=== PATIENT | female | born 1945 | race Two or more races ===

== ENCOUNTER 2018-10-06 20:20 | Inpatient (IN) | payer MEDICARE, MEDICAID ==
[~2018-10-06] VITALS: Ht 160 cm; Wt 59.0 kg
[2018-10-06 20:45] LABS: BASOPHILS # (AUTO) 0.1 /CMM (0.0-0.2); EOSINOPHILS % (AUTO) 1.8 % (0.0-6.0); HEMATOCRIT 38 % (33-45); HEMOGLOBIN 12.7 g/dL (11.5-14.8); LYMPHOCYTES # (AUTO) 0.6 /CMM (0.8-4.8); LYMPHOCYTES % (AUTO) 9.6 % (20.0-44.0); MEAN CORPUSCULAR HGB CONC 34 g/dl (31.0-36.0); MEAN CORPUSCULAR VOLUME 95 fL (82-100); MONOCYTES # (AUTO) 0.6 /CMM (0.1-1.30); MONOCYTES % (AUTO) 9.7 % (2.0-12.0); NEUTROPHILS # (AUTO) 5.1 /CMM (1.8-8.9); NEUTROPHILS % (AUTO) 77.9 % (43.0-81.0); PLATELET COUNT (AUTO) 267 /CMM (150-450); RED BLOOD CELL COUNT(AUTO) 3.96 MIL/uL (4.0-5.2); WHITE BLOOD COUNT (AUTO) 6.6 K/uL (4.3-11.0)
[2018-10-06 20:54] LABS: CALCIUM, SERUM 9.1 mg/dL (8.5-10.1); CARBON DIOXIDE 28 mmol/L (21-32); CHLORIDE 97 mmol/L (98-107); CREATININE 5.2 mg/dL (0.6-1.3); GLUCOSE 106 mg/dL (74-106); POTASSIUM 3.9 mmol/L (3.5-5.1); SODIUM SERUM 136 mmol/L (136-145); UREA NITROGEN, BLOOD 46 mg/dL (7-18)
[2018-10-06 20:59] LABS: ALANINE AMINOTRANSFERASE 11 U/L (12-78); ALBUMIN 3.6 g/dL (3.4-5.0); ALKALINE PHOSPHATASE 107 U/L (46-116); ASPARTATE AMINOTRANSFERASE 16 U/L (15-37); BILIRUBIN,DIRECT 0.1 mg/dL (0.0-0.2); BILIRUBIN,TOTAL 0.5 mg/dL (0.2-1.0)
[2018-10-06] MEDS ORDERED: IV NS 0.9% 500 ML BAG IV ONE (21:00)
[2018-10-06 21:27] LABS: APPEARANCE,URINE Clear (CLEAR); BILIRUBIN,URINE Negative (NEGATIVE); BLOOD, URINE Small Ery/uL (NEGATIVE); COLOR,URINE Yellow (YELLOW); KETONES,URINE Negative (NEGATIVE); LEUKOCYTE ESTERASE ,URINE Negative (NEGATIVE); NITRITE, URINE Negative (NEGATIVE); PROTEIN,URINE >=300 mg/dl (NEGATIVE); UGLUCOSE 100 MG/DL mg/dL (NEGATIVE); UROBILINOGEN,URINE 0.2 EU/dL (0.2)
[2018-10-06 21:37] LABS: BACTERIA,URINE Moderate /HPF (None Seen); SQUAMOUS EPITHELIAL CELL,UR Few /HPF (None Seen); WBC,URINE 0-2 /HPF (0-3)
[2018-10-06] MEDS ORDERED: PIPERACILLIN /TAZOBACTAM 3.375 G VIAL IV ONE (21:46)
[2018-10-06] MEDS ORDERED: VANCOMYCIN 1 GM VIAL ONE (21:46)
[2018-10-06] MEDS ORDERED: VANCOMYCIN 1 GM in IV D5W 250 ML IV ONE (22:00)
[2018-10-06] MEDS ORDERED: CEFTRIAXONE 1GM BAG (ER ONLY) 50 ML IV ONE (22:00)
[2018-10-06] MEDS ORDERED: PIPERACILLIN /TAZOBACTAM 3.375 G in IV D5W 50 ML IV ONE (22:00)
[2018-10-06] MEDS ORDERED: IV NS 0.9% 1,000 ML BAG IV ONE ×2 (22:00)
[2018-10-06] MEDS ORDERED: ONDANSETRON HCL/PF 4 MG/2 ML VIAL ONE (22:16)
[2018-10-06] MEDS ORDERED: ONDANSETRON HCL/PF 4 MG/2 ML VIAL IV ONE (22:30)
[2018-10-07] MEDS ORDERED: MAGNESIUM HYDROXIDE 30 ML UDC PO PRN
[2018-10-07] MEDS ORDERED: ACETAMINOPHEN 325 MG TABLET PO PRN
[2018-10-07] MEDS ORDERED: MAG HYDROX/AL HYDROX/SIMETH 30 ML UDC PO PRN
[2018-10-07] MEDS ORDERED: Z GUARD REMEDY 2 OZ OINT TP PRN
[2018-10-07 00:50] VITALS: BP 168/69
[2018-10-07 04:00] VITALS: BP 150/78
[2018-10-07 06:36] LABS: BASOPHILS % (AUTO) 0.9 % (0.0-2.0); HEMATOCRIT 35 % (33-45); HEMOGLOBIN 11.7 g/dL (11.5-14.8); LYMPHOCYTES # (AUTO) 0.8 /CMM (0.8-4.8); MEAN CORPUSCULAR HGB CONC 34 g/dl (31.0-36.0); MEAN CORPUSCULAR VOLUME 95 fL (82-100); MONOCYTES # (AUTO) 0.6 /CMM (0.1-1.30); MONOCYTES % (AUTO) 12.5 % (2.0-12.0); NEUTROPHILS # (AUTO) 3.5 /CMM (1.8-8.9); NEUTROPHILS % (AUTO) 68.6 % (43.0-81.0); PLATELET COUNT (AUTO) 236 /CMM (150-450); RED BLOOD CELL COUNT(AUTO) 3.71 MIL/uL (4.0-5.2); WHITE BLOOD COUNT (AUTO) 5.1 K/uL (4.3-11.0)
[2018-10-07 06:53] LABS: CALCIUM, SERUM 8.4 mg/dL (8.5-10.1); CARBON DIOXIDE 25 mmol/L (21-32); CHLORIDE 102 mmol/L (98-107); CREATININE 5.9 mg/dL (0.6-1.3); GLUCOSE 73 mg/dL (74-106); MAGNESIUM 2.5 mg/dL (1.8-2.4); PHOSPHORUS 7.2 mg/dL (2.5-4.9); POTASSIUM 4.5 mmol/L (3.5-5.1); SODIUM SERUM 141 mmol/L (136-145); UREA NITROGEN, BLOOD 52 mg/dL (7-18)
[2018-10-07 07:02] LABS: CHOLESTEROL 157 mg/dL (<200); HDL CHOLESTEROL 51 mg/dL (40-60); LDL 90 mg/dL (0-99); THYROID STIMULATING HORMONE 1.142 uIU/mL (0.358-3.74); TRIGLYCERIDES 114 mg/dL (30-150)
[2018-10-07 08:00] VITALS: BP 151/88
[2018-10-07] MEDS: NICOTINE PATCH (14MG) 14 MG PATCH.TD24 TD SCH (08:47)
[2018-10-07] MEDS ORDERED: PANTOPRAZOLE 40 MG VIAL IV SCH (09:00)
[2018-10-07] MEDS ORDERED: CILO50TA PO (09:07)
[2018-10-07] MEDS ORDERED: CLON0.5T12 PO (09:07)
[2018-10-07] MEDS ORDERED: CARV6.252 PO (09:07)
[2018-10-07] MEDS ORDERED: ASPI81TA44 PO (09:07)
[2018-10-07] MEDS ORDERED: LISI10TA5 PO (09:07)
[2018-10-07] MEDS ORDERED: PRAM0.129 PO (09:07)
[2018-10-07] MEDS ORDERED: FOLI0.8T23 PO (09:07)
[2018-10-07] MEDS: PANTOPRAZOLE 40 MG TABLET.DR PO SCH (10:49)
[2018-10-07 16:00] VITALS: BP_SYST 188; BP_DIAS 102; BP_DIAS 104
[2018-10-07] MEDS: HYDROCODONE/APAP 5/325MG 1 EACH TABLET PO PRN (16:19)
[2018-10-07 20:00] VITALS: BP 181/99
[2018-10-07 20:01] VITALS: BP 181/99
[2018-10-07] MEDS: CARVEDILOL 6.25 MG TABLET PO SCH (20:27)
[2018-10-07] MEDS: LISINOPRIL (10MG) 10 MG TABLET PO SCH (20:28)
[2018-10-07] MEDS ORDERED: clonazePAM 0.5 MG TABLET PO PRN (20:30)
[2018-10-08 04:00] VITALS: BP 159/88
[2018-10-08 08:00] VITALS: BP 166/91
[2018-10-08] MEDS: PANTOPRAZOLE 40 MG TABLET.DR PO SCH (08:56)
[2018-10-08] MEDS: CARVEDILOL 6.25 MG TABLET PO SCH ×2 (08:57→16:41)
[2018-10-08] MEDS: PRAMIPEXOLE DI-HCL 0.25 MG TABLET PO SCH (08:58)
[2018-10-08] MEDS: VITAMIN B COMP W-C 1 TAB TABLET PO SCH (08:58)
[2018-10-08] MEDS: ASPIRIN EC 81 MG TABLET.DR PO SCH (08:58)
[2018-10-08] MEDS: CILOSTAZOL 100 MG TABLET PO SCH ×2 (08:58→16:41)
[2018-10-08] MEDS: LISINOPRIL (10MG) 10 MG TABLET PO SCH (08:59)
[2018-10-08] MEDS: NICOTINE PATCH (14MG) 14 MG PATCH.TD24 TD SCH (08:59)
[2018-10-08] MEDS: HYDROCODONE/APAP 5/325MG 1 EACH TABLET PO PRN (09:14)
[2018-10-08] MEDS: ONDANSETRON HCL/PF 4 MG/2 ML VIAL IVP PRN (11:15)
[2018-10-08] MEDS ORDERED: LISINOPRIL (10MG) 10 MG TABLET PO ONE (13:00)
[2018-10-08 16:00] VITALS: BP 168/87
[2018-10-08 17:00] VITALS: BP 157/85
[2018-10-08 20:00] VITALS: BP 160/80
[2018-10-09 04:00] VITALS: BP_SYST 150; BP_SYST 167; BP_DIAS 87; BP_DIAS 95
[2018-10-09 08:00] VITALS: BP 165/81
[2018-10-09] MEDS ORDERED: LISINOPRIL (10MG) 10 MG TABLET PO SCH (09:00)
[2018-10-09] MEDS: hydrALAZINE HCL 25 MG TABLET PO PRN ×2 (09:03→16:42)
[2018-10-09] MEDS: ASPIRIN EC 81 MG TABLET.DR PO SCH (09:04)
[2018-10-09] MEDS: CARVEDILOL 6.25 MG TABLET PO SCH ×2 (09:04→16:41)
[2018-10-09] MEDS: NICOTINE PATCH (14MG) 14 MG PATCH.TD24 TD SCH (09:04)
[2018-10-09] MEDS: VITAMIN B COMP W-C 1 TAB TABLET PO SCH (09:05)
[2018-10-09] MEDS: PANTOPRAZOLE 40 MG TABLET.DR PO SCH (09:05)
[2018-10-09] MEDS: PRAMIPEXOLE DI-HCL 0.25 MG TABLET PO SCH (09:05)
[2018-10-09] MEDS: CILOSTAZOL 100 MG TABLET PO SCH ×2 (09:53→16:42)
[2018-10-09] MEDS ORDERED: LISINOPRIL (20MG) 20 MG TABLET PO ONE (12:30)
[2018-10-09 16:00] VITALS: BP_SYST 172; BP_SYST 192; BP_DIAS 84; BP_DIAS 95
[2018-10-09 20:00] VITALS: BP 151/78
[2018-10-10 04:00] VITALS: BP 167/95
[2018-10-10 06:26] LABS: EOSINOPHILS % (AUTO) 3.1 % (0.0-6.0); HEMATOCRIT 33 % (33-45); HEMOGLOBIN 11.1 g/dL (11.5-14.8); LYMPHOCYTES % (AUTO) 20.1 % (20.0-44.0); MEAN CORPUSCULAR HGB CONC 34 g/dl (31.0-36.0); MEAN CORPUSCULAR VOLUME 95 fL (82-100); MONOCYTES # (AUTO) 0.7 /CMM (0.1-1.30); MONOCYTES % (AUTO) 14.4 % (2.0-12.0); NEUTROPHILS % (AUTO) 61.4 % (43.0-81.0); PLATELET COUNT (AUTO) 210 /CMM (150-450); RED BLOOD CELL COUNT(AUTO) 3.47 MIL/uL (4.0-5.2); WHITE BLOOD COUNT (AUTO) 4.9 K/uL (4.3-11.0)
[2018-10-10 06:43] LABS: CALCIUM, SERUM 8.2 mg/dL (8.5-10.1); CARBON DIOXIDE 26 mmol/L (21-32); CHLORIDE 100 mmol/L (98-107); CREATININE 6.3 mg/dL (0.6-1.3); GLUCOSE 78 mg/dL (74-106); MAGNESIUM 2.2 mg/dL (1.8-2.4); PHOSPHORUS 6.6 mg/dL (2.5-4.9); POTASSIUM 4.4 mmol/L (3.5-5.1); SODIUM SERUM 137 mmol/L (136-145); UREA NITROGEN, BLOOD 30 mg/dL (7-18)
[2018-10-10 08:00] VITALS: BP 182/88
[2018-10-10] MEDS: NICOTINE PATCH (14MG) 14 MG PATCH.TD24 TD SCH (09:38)
[2018-10-10] MEDS: PANTOPRAZOLE 40 MG TABLET.DR PO SCH (09:39)
[2018-10-10] MEDS: CILOSTAZOL 100 MG TABLET PO SCH ×2 (09:39→16:32)
[2018-10-10] MEDS: ASPIRIN EC 81 MG TABLET.DR PO SCH (09:39)
[2018-10-10] MEDS: PRAMIPEXOLE DI-HCL 0.25 MG TABLET PO SCH (09:39)
[2018-10-10] MEDS: VITAMIN B COMP W-C 1 TAB TABLET PO SCH (09:40)
[2018-10-10] MEDS: CARVEDILOL 6.25 MG TABLET PO SCH ×2 (09:41→16:45)
[2018-10-10] MEDS: LISINOPRIL (10MG) 10 MG TABLET PO SCH (09:43)
[2018-10-10] MEDS ORDERED: AMLODIPINE BESYLATE 5 MG TABLET PO SCH (10:00)
[2018-10-10 12:00] VITALS: BP 175/96
[2018-10-10] MEDS: NIFEdipine XL (30MG) 30 MG TAB PO SCH (16:33)
[2018-10-10] MEDS: ONDANSETRON HCL/PF 4 MG/2 ML VIAL IVP PRN (17:49)
[2018-10-10 20:00] VITALS: BP_SYST 111; BP_SYST 137; BP_DIAS 72; BP_DIAS 82
[2018-10-11 04:00] VITALS: BP 141/78
[2018-10-11 07:47] LABS: ALANINE AMINOTRANSFERASE 11 U/L (12-78); ALBUMIN 2.8 g/dL (3.4-5.0); ALKALINE PHOSPHATASE 86 U/L (46-116); ASPARTATE AMINOTRANSFERASE 16 U/L (15-37); BILIRUBIN,TOTAL 0.6 mg/dL (0.2-1.0); CALCIUM, SERUM 8.3 mg/dL (8.5-10.1); CARBON DIOXIDE 27 mmol/L (21-32); CHLORIDE 99 mmol/L (98-107); CREATININE 5.7 mg/dL (0.6-1.3); GLUCOSE 91 mg/dL (74-106); MAGNESIUM 2.1 mg/dL (1.8-2.4); PHOSPHORUS 5.2 mg/dL (2.5-4.9); POTASSIUM 4.9 mmol/L (3.5-5.1); SODIUM SERUM 134 mmol/L (136-145); TOTAL PROTEIN, SERUM 7.4 g/dL (6.4-8.2); UREA NITROGEN, BLOOD 26 mg/dL (7-18)
[2018-10-11 08:00] VITALS: BP 123/78
[2018-10-11 08:17] LABS: BASOPHILS % (AUTO) 0.5 % (0.0-2.0); EOSINOPHILS % (AUTO) 0.6 % (0.0-6.0); HEMATOCRIT 34 % (33-45); HEMOGLOBIN 11.2 g/dL (11.5-14.8); LYMPHOCYTES # (AUTO) 0.6 /CMM (0.8-4.8); LYMPHOCYTES % (AUTO) 9.7 % (20.0-44.0); MEAN CORPUSCULAR HGB CONC 33 g/dl (31.0-36.0); MEAN CORPUSCULAR VOLUME 95 fL (82-100); MONOCYTES # (AUTO) 0.4 /CMM (0.1-1.30); MONOCYTES % (AUTO) 6.3 % (2.0-12.0); NEUTROPHILS # (AUTO) 4.8 /CMM (1.8-8.9); NEUTROPHILS % (AUTO) 82.9 % (43.0-81.0); PLATELET COUNT (AUTO) 229 /CMM (150-450); RED BLOOD CELL COUNT(AUTO) 3.53 MIL/uL (4.0-5.2); WHITE BLOOD COUNT (AUTO) 5.8 K/uL (4.3-11.0)
[2018-10-11] MEDS: VITAMIN B COMP W-C 1 TAB TABLET PO SCH (08:34)
[2018-10-11] MEDS: LISINOPRIL (10MG) 10 MG TABLET PO SCH (08:34)
[2018-10-11] MEDS: PANTOPRAZOLE 40 MG TABLET.DR PO SCH (08:34)
[2018-10-11] MEDS: NICOTINE PATCH (14MG) 14 MG PATCH.TD24 TD SCH (08:35)
[2018-10-11] MEDS: PRAMIPEXOLE DI-HCL 0.25 MG TABLET PO SCH (08:35)
[2018-10-11] MEDS: CARVEDILOL 6.25 MG TABLET PO SCH ×2 (09:55→16:59)
[2018-10-11] MEDS: NIFEdipine XL (30MG) 30 MG TAB PO SCH (09:55)
[2018-10-11] MEDS: ASPIRIN EC 81 MG TABLET.DR PO SCH (09:56)
[2018-10-11] MEDS: CILOSTAZOL 100 MG TABLET PO SCH ×2 (09:56→16:59)
[2018-10-11] MEDS ORDERED: CLON0.1T14 PO (12:11)
[2018-10-11] MEDS ORDERED: NIFE30TA89 PO (12:11)
[2018-10-11 16:00] VITALS: BP 125/71
[2018-10-11 16:59] VITALS: BP 125/71
== END 2018-10-11 18:11 | disposition home or self-care (01) | DRG 391 ==
LOC: ER 20:26 → TELE1 10-07 00:06 → MEDSG1 10-07 09:00
PROVIDERS: ADMIT Registered Nurse; ATTEND Registered Nurse
PROC: 5A1D70Z Performance of Urinary Filtration, Intermittent, Less than 6 Hours Per Day (ICD-10-PCS; principal; 2018-10-07)
PROC: 5A1D70Z Performance of Urinary Filtration, Intermittent, Less than 6 Hours Per Day (ICD-10-PCS; 2018-10-08)
PROC: 5A1D70Z Performance of Urinary Filtration, Intermittent, Less than 6 Hours Per Day (ICD-10-PCS; 2018-10-10)
DX: A08.4 Viral intestinal infection, unspecified (principal); N18.6 End stage renal disease; I13.2 Hypertensive heart and chronic kidney disease with heart failure and with stage 5 chronic kidney disease, or end stage renal disease; E21.3 Hyperparathyroidism, unspecified; E87.8 Other disorders of electrolyte and fluid balance, not elsewhere classified; G89.29 Other chronic pain; I27.20 Pulmonary hypertension, unspecified; J44.9 Chronic obstructive pulmonary disease, unspecified; F17.200 Nicotine dependence, unspecified, uncomplicated; E66.9 Obesity, unspecified; D64.9 Anemia, unspecified; Z91.19 Patient's noncompliance with other medical treatment and regimen; Z99.2 Dependence on renal dialysis; I50.9 Heart failure, unspecified
CPT/HCPCS: 36415; 71045-TC; 80048-TC; 80053-TC; 80061-TC; 80076-TC; 81000-TC; 82962-TC; 83605-TC; 83735-TC; 84100-TC; 84443-TC; 84484-TC; 85025-TC; 87040-TC; 87081-TC; 87086-TC; 90935-TC; 93307-TC; G0378; J2405; J2543; J3370; J7030; J7040; J7060

== ENCOUNTER 2019-06-26 17:33 | Inpatient (IN) | payer MEDICARE, OTHER ==
[~2019-06-26] VITALS: Ht 160 cm; Wt 58.5 kg
[~2019-06-26 17:33] MED LIST: ASPI81TA44 PO; CARV6.252 PO; CILO50TA PO; CLON0.1T14 PO; CLON0.5T4 PO; FOLI0.8T23 PO; LISI10TA5 PO; NIFE30TA89 PO; PRAM0.129 PO
--- NOTE | 2019-06-26 17:53 | NUR ---
[id number] [facility]LEVATED HEART RATE. Patient [id number] from dialysis center, c/o elevated heart rate s/p HD. On rom air, breathing evenly and unlabored. connected to the monitor and pulse ox. Kept comfortable, will continue to monitor accordingly.
--- NOTE | 2019-06-26 17:54 | NUR ---
IV access initiated and blood drawned and sent to lab
[2019-06-26 18:00] LABS: BASOPHILS # (AUTO) 0.1 /CMM (0.0-0.2); BASOPHILS % (AUTO) 0.8 % (0.0-2.0); EOSINOPHILS % (AUTO) 0.8 % (0.0-6.0); HEMATOCRIT 32 % (33-45); HEMOGLOBIN 10.6 g/dL (11.5-14.8); LYMPHOCYTES # (AUTO) 0.3 /CMM (0.8-4.8); LYMPHOCYTES % (AUTO) 4.5 % (20.0-44.0); MEAN CORPUSCULAR HGB CONC 33 g/dl (31.0-36.0); MEAN CORPUSCULAR VOLUME 97 fL (82-100); MONOCYTES # (AUTO) 0.4 /CMM (0.1-1.30); MONOCYTES % (AUTO) 6.4 % (2.0-12.0); NEUTROPHILS # (AUTO) 5.7 /CMM (1.8-8.9); NEUTROPHILS % (AUTO) 87.5 % (43.0-81.0); PLATELET COUNT (AUTO) 268 /CMM (150-450); RED BLOOD CELL COUNT(AUTO) 3.28 MIL/uL (4.0-5.2); WHITE BLOOD COUNT (AUTO) 6.5 K/uL (4.3-11.0)
--- NOTE | 2019-06-26 18:13 | NUR ---
urine collected and sent to lab
[2019-06-26] MEDS ORDERED: ALBU18HF2 (18:21)
[2019-06-26 18:29] LABS: ALBUMIN 3.2 g/dL (3.4-5.0); ALKALINE PHOSPHATASE 78 U/L (46-116); ASPARTATE AMINOTRANSFERASE 17 U/L (15-37); BILIRUBIN,DIRECT 0.1 mg/dL (0.0-0.2); BILIRUBIN,TOTAL 0.5 mg/dL (0.2-1.0); CARBON DIOXIDE 28 mmol/L (21-32); CHLORIDE 96 mmol/L (98-107); CREATININE 5.5 mg/dL (0.6-1.3); GLUCOSE 84 mg/dL (74-106); POTASSIUM 3.5 mmol/L (3.5-5.1); SODIUM SERUM 138 mmol/L (136-145); TOTAL PROTEIN, SERUM 8.6 g/dL (6.4-8.2); UREA NITROGEN, BLOOD 34 mg/dL (7-18)
[2019-06-26 18:39] LABS: ALANINE AMINOTRANSFERASE < 6 U/L (12-78)
[2019-06-26 18:59] LABS: APPEARANCE,URINE Clear (CLEAR); BILIRUBIN,URINE Negative (NEGATIVE); BLOOD, URINE Small Ery/uL (NEGATIVE); COLOR,URINE Yellow (YELLOW); KETONES,URINE Negative (NEGATIVE); LEUKOCYTE ESTERASE ,URINE Negative (NEGATIVE); NITRITE, URINE Negative (NEGATIVE); PH,URINE 5.5 (5.0-8.0); PROTEIN,URINE >=300 mg/dl (NEGATIVE); UGLUCOSE Negative (NEGATIVE); UROBILINOGEN,URINE 0.2 EU/dL (0.2)
[2019-06-26] MEDS ORDERED: CEFTRIAXONE 1GM BAG (ER ONLY) 50 ML IV ONE ×2 (18:59→19:00)
[2019-06-26 19:12] LABS: BACTERIA,URINE 3+ /HPF (None Seen); SQUAMOUS EPITHELIAL CELL,UR Rare /HPF (None Seen); WBC,URINE 0-2 /HPF (0-3)
--- NOTE | 2019-06-26 19:15 | NUR ---
Pt appears to be resting comfortably with no s/s of pain or distress. Pt is on the monitor and continuous pulse ox. vss.
--- NOTE | 2019-06-26 19:17 | NUR ---
report given to Jackie for louise
[2019-06-26] MEDS ORDERED: VANCOMYCIN 1 GM VIAL ONE (19:50)
--- NOTE | 2019-06-26 19:54 | NUR ---
Pt rec'd Vancomycin as ordered.
[2019-06-26] MEDS ORDERED: VANCOMYCIN 1 GM in IV D5W 250 ML IV ONE (20:00)
--- NOTE | 2019-06-26 20:00 | NUR ---
BED ASSIGNMENT TELE 307
--- NOTE | 2019-06-26 20:02 | NUR ---
Marah hancock in [facility] - 06/26/19 at 2003 by [email or web address] CALLING REPORT TO RUTHIE BENDER.
--- NOTE | 2019-06-26 20:03 | NUR ---
CALLING REPORT TO RUTHIE JOHNSON
--- NOTE | 2019-06-26 20:30 | NUR ---
RECEIVED PATIENT FROM ED VIA GURNEY IN STABLE CONDITION. PATIENT AWAKE, A/O X3 AND ABLE TO VERBALIZE NEEDS AND PROVIDE HISTORY. NO C/O PAIN OR DISCOMFORT. PAMELA AV SHUNT INTACT WITH (+) BRUIT AND THRILL. RAC #18 GAUGE PERIPHERAL LINE INTACT AND PATENT. PATIENT WITH WALKER FROM HOME AND ABLE TO AMBULATE WITH SLOW STEADY GAIT. ENCOURAGED USE OF CALL LIGHT FOR ASSISTANCE AND VERBALIZED GOOD UNDERSTANDING. BED IN LOW LOCK SETTING. ROOM FREE OF CLUTTER AND BELONGINGS KEPT NEAR BEDSIDE. WILL CONTINUE TO MONITOR.
[2019-06-26 20:35] VITALS: BP 154/83
[2019-06-26] MEDS ORDERED: clonazePAM 0.5 MG TABLET PO PRN (23:30)
[2019-06-26] MEDS ORDERED: MAG HYDROX/AL HYDROX/SIMETH 30 ML UDC PO PRN (23:30)
[2019-06-26] MEDS ORDERED: HYDROCODONE/APAP 5/325MG 1 EACH TABLET PO PRN (23:30)
[2019-06-26] MEDS ORDERED: ZOLPIDEM TARTRATE 5 MG TABLET PO PRN (23:30)
[2019-06-26] MEDS ORDERED: MAGNESIUM HYDROXIDE 30 ML UDC PO PRN (23:30)
[2019-06-26] MEDS ORDERED: Z GUARD REMEDY 2 OZ OINT TP PRN (23:30)
[2019-06-26] MEDS ORDERED: ONDANSETRON HCL/PF 4 MG/2 ML VIAL IVP PRN (23:30)
[2019-06-27] VITALS: BP 148/80
[2019-06-27 04:00] VITALS: BP 141/79
[2019-06-27] MEDS: ACETAMINOPHEN 325 MG TABLET PO PRN (05:01)
[2019-06-27 06:26] LABS: BASOPHILS % (AUTO) 0.7 % (0.0-2.0); EOSINOPHILS % (AUTO) 0.4 % (0.0-6.0); HEMATOCRIT 29 % (33-45); HEMOGLOBIN 9.7 g/dL (11.5-14.8); LYMPHOCYTES # (AUTO) 0.4 /CMM (0.8-4.8); LYMPHOCYTES % (AUTO) 8.6 % (20.0-44.0); MEAN CORPUSCULAR HGB CONC 33 g/dl (31.0-36.0); MEAN CORPUSCULAR VOLUME 97 fL (82-100); MONOCYTES # (AUTO) 0.6 /CMM (0.1-1.30); MONOCYTES % (AUTO) 13.1 % (2.0-12.0); NEUTROPHILS # (AUTO) 3.8 /CMM (1.8-8.9); NEUTROPHILS % (AUTO) 77.2 % (43.0-81.0); PLATELET COUNT (AUTO) 249 /CMM (150-450); WHITE BLOOD COUNT (AUTO) 4.9 K/uL (4.3-11.0)
--- NOTE | 2019-06-27 06:43 | NUR ---
LEVEL VIAL INSPECTOR NOTES PATIENT ASLEEP IN BED WITH NO DISTRESS NOTED. CALL LIGHT WITHIN REACH. NO C/O PAIN OR DISCOMFORT NOTED DURING SHIFT. PERIPHERAL LINE INTACT AND PATENT. PAMELA AV SHUNT INTACT WITH (+) BRUIT AND THRILL. ALL DUE MEDS GIVEN ORDERED WITH NO ASE. BED IN LOW LOCK SETTING. ROOM FREE OF CLUTTER AND BELONGINGS KEPT NEAR BEDSIDE. WILL ENDORSE TO ONCOMING SHIFT.
[2019-06-27 06:45] LABS: ALANINE AMINOTRANSFERASE < 6 U/L (12-78); ALBUMIN 2.7 g/dL (3.4-5.0); ALKALINE PHOSPHATASE 70 U/L (46-116); ASPARTATE AMINOTRANSFERASE 17 U/L (15-37); BILIRUBIN,TOTAL 0.4 mg/dL (0.2-1.0); CALCIUM, SERUM 7.7 mg/dL (8.5-10.1); CARBON DIOXIDE 30 mmol/L (21-32); CHLORIDE 98 mmol/L (98-107); CHOLESTEROL 112 mg/dL (<200); CREATININE 6.8 mg/dL (0.6-1.3); GLUCOSE 78 mg/dL (74-106); HDL CHOLESTEROL 34 mg/dL (40-60); LDL 62 mg/dL (0-99); PHOSPHORUS 6.6 mg/dL (2.5-4.9); POTASSIUM 4.2 mmol/L (3.5-5.1); SODIUM SERUM 138 mmol/L (136-145); THYROID STIMULATING HORMONE 1.099 uIU/mL (0.358-3.74); TOTAL PROTEIN, SERUM 7.7 g/dL (6.4-8.2); TRIGLYCERIDES 98 mg/dL (30-150); UREA NITROGEN, BLOOD 41 mg/dL (7-18)
[2019-06-27] MEDS ORDERED: FEE PK DOSING 1 MIN EA MC ONE (07:45)
--- NOTE | 2019-06-27 07:45 | NUR ---
MS/RN Patient received Patient received from public service officer. A/O X4, vital signs stable, no fever noted. Heplock to right AC 18 gauge shows no signs of infiltration, left upper arm AV shunt with dry and intact dressing. Denies any pain or discomfort, time allowed for all fears and concerns to be addressed. Bed in low setting, side rails X2 in upright position, call light within reach. Will continue to monitor and ensure safety.
[2019-06-27 08:00] VITALS: BP 154/77
[2019-06-27] MEDS ORDERED: VANCOMYCIN 500 MG in IV D5W 100 ML IV PRN (08:00)
[2019-06-27] MEDS: ASPIRIN EC 81 MG TABLET.DR PO SCH (08:38)
[2019-06-27] MEDS: VIT B CMPLX 3/FA/VIT C/BIOTIN 1 TAB TABLET PO SCH (08:38)
[2019-06-27] MEDS: CARVEDILOL 6.25 MG TABLET PO SCH ×2 (08:39→16:58)
[2019-06-27] MEDS: NIFEdipine XL (30MG) 30 MG TAB PO SCH (08:39)
[2019-06-27] MEDS: PRAMIPEXOLE DI-HCL 0.25 MG TABLET PO SCH (08:40)
--- NOTE | 2019-06-27 08:56 | NUR ---
MS/RN Medications Morning medications administered as ordered.
[2019-06-27] MEDS ORDERED: CILOSTAZOL 50 MG TABLET PO SCH (09:00)
--- NOTE | 2019-06-27 11:00 | NUR ---
MS/RN S/B Dr Rodgers Seen by Dr Rodgers - patient to be scheduled for HDX tomorrow, consent form signed. Hepatitis panel ordered. Case management contacted as patient requesting to switch to different HDX center, Tamanna made aware and will come to speak with patient.
--- NOTE | 2019-06-27 12:34 | NUR ---
MS/corn chip maker update Spoke with patient's daughter Noelle, updated as to plan of care.
--- NOTE | 2019-06-27 13:59 | NUR ---
SS consult requested by Dr.Danny Padilla for possible HD unit change. The patient is a 73 year old Female in [facility] for brought in from dialysis center for weakness and elevated heart rate. Per Livestock Judging Coach consultation the pt. presented lying in bed and was receptive to meeting with [employer] Sales Representative. Pt. appears unkempt and was alert and orientedx4. Per patient, she lives at home [[address] [facility] [place], [address]; [phone]] with her daughter, Angelica Chau [phone] and grandson. Per pt. her daughter does not have a car so she wants transportation services to get to dialysis center: [facility] [[address], [place] [address]; [phone]]. ALIA provided pt. with an ACCESS application in Azerbaijani and Turkish with pre-filled ID #. SW explained application process and pt. was agreeable to plan. Pt. stated her daughter, Angelica can assist her with setting up assessment apt. with ACCESS. Pt. expressed appreciation. Pt. stated that she can take the bus to dialysis in the meantime. Pt. is able to ambulate with rollator walker.
[2019-06-27 16:00] VITALS: BP 143/70
[2019-06-27] MEDS: CILOSTAZOL 100 MG TABLET PO SCH (16:57)
--- NOTE | 2019-06-27 17:46 | NUR ---
MS/RN S/B Dr Melgoza Seen by Dr Melgoza - continue with current IVAB, await final urine cultures.
--- NOTE | 2019-06-27 18:38 | NUR ---
MS/RN End note Central supply called and requested for SCD pump as none available on unit, sleeves placed at bedside ready. All medications administered as ordered, no difficulty swallowing. Bed in low setting, side rails X3 in upright position, call light within reach. Daughter Cfristine updated as to plan of care. Patient for HDX tomorrow morning, conssent form signed and placed in chart. Will endorse to assistant casino shift manager.
--- NOTE | 2019-06-27 19:05 | NUR ---
MS RN NOTE RECEIVED PT IN STABLE CONDITION A/O X3, CURRENTLY WATCHING TV. NO SIGNS OF SOB OR DISTRESS, NO C/O PAIN. IV IN R AC #[address] S/L. ALL CURRENT NEEDS ATTENDED TO. BED LOW, LOCKED, UPPER RAILS UP AND CALL LIGHT WITHIN REACH. WILL CONT. TO MONITOR.
[2019-06-27] MEDS: CEFTRIAXONE 1 G in IV D5W 50 ML IV SCH (19:09)
[2019-06-27 20:40] VITALS: BP 119/63
--- NOTE | 2019-06-28 06:17 | NUR ---
MS RN NOTE PT REMAINS IN STABLE CONDITION A/O X3, CURRENTLY RESTING IN BED. NO SIGNS OF SOB OR DISTRESS, NO C/O PAIN. IV IN R AC #[address] S/L. ALL CURRENT NEEDS ATTENDED TO. BED LOW, LOCKED, UPPER RAILS UP AND CALL LIGHT WITHIN REACH. WILL CONT. TO MONITOR AND ENDORSE TO NEXT SHIFT FOR SKYLAR.
[2019-06-28 06:18] LABS: BASOPHILS % (AUTO) 0.3 % (0.0-2.0); EOSINOPHILS % (AUTO) 1.1 % (0.0-6.0); HEMATOCRIT 27 % (33-45); LYMPHOCYTES # (AUTO) 0.5 /CMM (0.8-4.8); LYMPHOCYTES % (AUTO) 13.7 % (20.0-44.0); MEAN CORPUSCULAR HGB CONC 33 g/dl (31.0-36.0); MEAN CORPUSCULAR VOLUME 98 fL (82-100); MONOCYTES # (AUTO) 0.5 /CMM (0.1-1.30); MONOCYTES % (AUTO) 14.4 % (2.0-12.0); NEUTROPHILS # (AUTO) 2.7 /CMM (1.8-8.9); NEUTROPHILS % (AUTO) 70.5 % (43.0-81.0); PLATELET COUNT (AUTO) 195 /CMM (150-450); RED BLOOD CELL COUNT(AUTO) 2.78 MIL/uL (4.0-5.2); WHITE BLOOD COUNT (AUTO) 3.8 K/uL (4.3-11.0)
[2019-06-28 06:48] LABS: ALANINE AMINOTRANSFERASE < 6 U/L (12-78); ALBUMIN 2.5 g/dL (3.4-5.0); ALKALINE PHOSPHATASE 61 U/L (46-116); ASPARTATE AMINOTRANSFERASE 17 U/L (15-37); BILIRUBIN,TOTAL 0.4 mg/dL (0.2-1.0); CARBON DIOXIDE 28 mmol/L (21-32); CHLORIDE 98 mmol/L (98-107); GLUCOSE 81 mg/dL (74-106); MAGNESIUM 2.1 mg/dL (1.8-2.4); POTASSIUM 4.3 mmol/L (3.5-5.1); SODIUM SERUM 138 mmol/L (136-145); TOTAL PROTEIN, SERUM 7.2 g/dL (6.4-8.2); UREA NITROGEN, BLOOD 60 mg/dL (7-18)
--- NOTE | 2019-06-28 07:31 | NUR ---
MS RN OPENING NOTES PATIENT RECEIVED IN BED ASLEEP, HOB ELEVATED. PATIENT BREATHING ON ROOM AIR. BREATHING EVENLY IN NO DISTRESS OR SHORTNESS OF BREATH NOTED. IV SALINE LOCK ON R AC G # 18 INTACT AND PATENT. NO REDNESS OR SIGNS OF INFILTRATION NOTED AT THIS TIME. THERE IS AN AV FISTULA ON PAMELA. FISTULA INTACT WITH BRUITS PRESENT. SAFETY MEASURES IN PLACE: BED IN LOW POSITION AND LOCKED, RAILS UP X 2, CALL LIGHT WITHIN REACH
[2019-06-28 07:33] LABS: CREATININE 8.9 mg/dL (0.6-1.3); PHOSPHORUS 9.6 mg/dL (2.5-4.9)
[2019-06-28 08:00] VITALS: BP 141/71
[2019-06-28] MEDS: CILOSTAZOL 100 MG TABLET PO SCH ×2 (08:22→16:46)
[2019-06-28] MEDS: VIT B CMPLX 3/FA/VIT C/BIOTIN 1 TAB TABLET PO SCH (08:22)
[2019-06-28] MEDS: ASPIRIN EC 81 MG TABLET.DR PO SCH (08:24)
[2019-06-28] MEDS: NIFEdipine XL (30MG) 30 MG TAB PO SCH (08:24)
[2019-06-28] MEDS: PRAMIPEXOLE DI-HCL 0.25 MG TABLET PO SCH (08:25)
[2019-06-28] MEDS: CARVEDILOL 6.25 MG TABLET PO SCH ×2 (08:26→16:46)
--- NOTE | 2019-06-28 09:35 | NUR ---
RN NOTES PATIENT IN BED AWAKE AND JUST STARTED ON HEMODIALYSIS VIA PAMELA SHUNT. PRE- HD V/S; BP 134/66 , P 83 ,R 18 AND T 97.1F. WILL CONTINUE TO MONITOR.
--- NOTE | 2019-06-28 11:50 | NUR ---
RN NOTES PATIENT COMPLAINING OF SEVERE RIGHT HIP PAIN (9 OUT OF 10). PATIENT MOANING, GRIMACING AND GUARDING. NORCO 5-325MG ADMINISTERED AT 1148. WILL CONTINUE TO MONITOR AND RE-ASSESS.
--- NOTE | 2019-06-28 12:08 | NUR ---
RN S/P HD NOTES HEMODIALYSIS JUST FINISHED WITH 1,100ML OUTPUT. DRY DRESSING APPLIED TO PAMELA AV SHUNT. PT TOLERATED PROCEDURE. S/P HD VS: BP 143/78, P 96, R 20 AND T 97.7F. WILL CONTINUE TO MONITOR.
[2019-06-28 16:00] VITALS: BP 139/71
--- NOTE | 2019-06-28 18:55 | NUR ---
MS RN CLOSING NOTES PATIENT IN BED AWAKE AND RESTING @ MODERATE HIGH BACKREST POSITION. A/O X3. ABLE TO MAKE NEEDS KNOWN. ON SUPPLEMENTAL 02 VIA N/C @ 2LPM, TOLERATING WELL WITH NO SOB NOTED THROUGHOUT THE DAY. IV ACCESS ON RAC G #18 INTACT, PATENT AND FLUSHES WELL.. AV SHUNT ON PAMELA IN PLACE WITH + BRUIT/THRILL NOTED, DRY DRESSING C/D/I. ALL NEEDS ATTENDED WELL. ALL DUE MEDS GIVEN ORDERED. KEPT PATIENT SAFE AND COMFORTABLE. BED IN LOWEST LOCKED POSITION WITH SIDE-RAILS UP X2. CALL LIGHT IN REACH. WILL ENDORSE TO NIGHT NURSE FOR SKYLAR.
[2019-06-28] MEDS: CEFTRIAXONE 1 G in IV D5W 50 ML IV SCH (19:24)
--- NOTE | 2019-06-28 19:30 | NUR ---
MS RN NOTES RECEIVED ON BED,SLEEPING ON LEFT SIDE POSITION,BREATHING NON LABORED,SALINE LOCK RIGHT AC INTACT AND PATENT,LEFT UPPER ARM AV SHUNT FOR HD ACCESS.NO COMPLAINTS AT THE MOMENT,CALL LIGHT IN REACH,NEEDS ANTICIPATED.
[2019-06-28 20:00] VITALS: BP 132/81
--- NOTE | 2019-06-28 21:00 | NUR ---
MS RN NOTES IV SITE LEAKING,NEW SALINE LOCK PLACE ON RIGHT FOREARM #22,IVF AT TKO RATE INFUSING
--- NOTE | 2019-06-29 00:32 | NUR ---
MS RN NOTES SKIN WARM TO TOUCH,ORAL TEMP OF 100.0,MEDICATED WITH TYLENOL 650MG PO ORDERED.COOLING MEASURES STARTED.
[2019-06-29] MEDS: ACETAMINOPHEN 325 MG TABLET PO PRN (00:35)
--- NOTE | 2019-06-29 06:23 | NUR ---
MS RN NOTES LATEST ORAL TEMP 98.9,O2 IN USED,STILL WITH ON AND OFF NON PRODUCTIVE COUGH.SLEPT WELL.NO FALL,NO INJURY,CALL LIGHT IN REACH,NEEDS ATTENDED.IN NO ACUTE DISTRESS.
[2019-06-29 07:06] LABS: BASOPHILS % (AUTO) 0.6 % (0.0-2.0); EOSINOPHILS % (AUTO) 3.1 % (0.0-6.0); HEMATOCRIT 26 % (33-45); HEMOGLOBIN 8.7 g/dL (11.5-14.8); LYMPHOCYTES # (AUTO) 0.6 /CMM (0.8-4.8); LYMPHOCYTES % (AUTO) 20.1 % (20.0-44.0); MEAN CORPUSCULAR HGB CONC 33 g/dl (31.0-36.0); MEAN CORPUSCULAR VOLUME 98 fL (82-100); MONOCYTES # (AUTO) 0.6 /CMM (0.1-1.30); MONOCYTES % (AUTO) 18.9 % (2.0-12.0); NEUTROPHILS # (AUTO) 1.7 /CMM (1.8-8.9); NEUTROPHILS % (AUTO) 57.3 % (43.0-81.0); PLATELET COUNT (AUTO) 175 /CMM (150-450); RED BLOOD CELL COUNT(AUTO) 2.68 MIL/uL (4.0-5.2)
[2019-06-29 07:26] LABS: CALCIUM, SERUM 7.2 mg/dL (8.5-10.1); CARBON DIOXIDE 27 mmol/L (21-32); CHLORIDE 102 mmol/L (98-107); CREATININE 6.9 mg/dL (0.6-1.3); GLUCOSE 94 mg/dL (74-106); SODIUM SERUM 137 mmol/L (136-145); UREA NITROGEN, BLOOD 39 mg/dL (7-18)
[2019-06-29 07:44] LABS: MAGNESIUM 2.1 mg/dL (1.8-2.4); PHOSPHORUS 7.3 mg/dL (2.5-4.9)
[2019-06-29 08:15] VITALS: BP 128/59
[2019-06-29 08:29] LABS: EOSINOPHILS % (MANUAL) 1 % (0-4); LYMPHOCYTES % (MANUAL) 19 % (16-48); MONOCYTES % (MANUAL) 11 % (0-11.0); NEUTROPHILS % (MANUAL) 69 (42-76)
[2019-06-29] MEDS: VIT B CMPLX 3/FA/VIT C/BIOTIN 1 TAB TABLET PO SCH (09:25)
[2019-06-29] MEDS: ASPIRIN EC 81 MG TABLET.DR PO SCH (09:25)
[2019-06-29] MEDS: CARVEDILOL 6.25 MG TABLET PO SCH (09:26)
[2019-06-29] MEDS: CILOSTAZOL 100 MG TABLET PO SCH (09:26)
[2019-06-29] MEDS: PRAMIPEXOLE DI-HCL 0.25 MG TABLET PO SCH (09:26)
[2019-06-29] MEDS: NIFEdipine XL (30MG) 30 MG TAB PO SCH (09:26)
[2019-06-29 16:53] VITALS: BP 135/72
[2019-06-29] MEDS ORDERED: LEVO750T21 PO (16:55)
== END 2019-06-29 17:30 | disposition home or self-care (01) | DRG 871 ==
LOC: ER 17:33 → TELE 20:01 → MED 06-27 09:14
PROVIDERS: ADMIT Hospitalist
DX: A41.9 Sepsis, unspecified organism (principal); J18.9 Pneumonia, unspecified organism; N18.6 End stage renal disease; E44.1 Mild protein-calorie malnutrition; I12.0 Hypertensive chronic kidney disease with stage 5 chronic kidney disease or end stage renal disease; D63.8 Anemia in other chronic diseases classified elsewhere; I27.20 Pulmonary hypertension, unspecified; G89.29 Other chronic pain; J44.9 Chronic obstructive pulmonary disease, unspecified; Z99.2 Dependence on renal dialysis; Z79.899 Other long term (current) drug therapy; Z79.82 Long term (current) use of aspirin; Z79.02 Long term (current) use of antithrombotics/antiplatelets; F41.9 Anxiety disorder, unspecified; E21.3 Hyperparathyroidism, unspecified; F17.200 Nicotine dependence, unspecified, uncomplicated; Z98.890 Other specified postprocedural states; Z79.51 Long term (current) use of inhaled steroids; I70.0 Atherosclerosis of aorta
CPT/HCPCS: 36415; 71045-TC; 80048-TC; 80053-TC; 80061-TC; 80076-TC; 80202-TC; 81000-TC; 83605-TC; 83735-TC; 84100-TC; 84443-TC; 84484-TC; 85025-TC; 85730-TC; 86706; 86850-TC; 86921-TC; 87040-TC; 87081-TC; 87086-TC; 87340; 90935-TC; G0378; J0696; J3370; J3490; J7050; J7060

== ENCOUNTER 2020-01-03 19:24 | Emergency (ER) | payer MEDICARE, OTHER ==
[~2020-01-03] VITALS: Ht 160 cm; Wt 57.6 kg
[~2020-01-03 19:24] MED LIST changes: +ALBU18HF2; +LEVO750T21 PO; +NIFE-35 PO; -NIFE30TA89 PO
--- NOTE | 2020-01-03 19:45 | NUR ---
PT BIBRA C/O GENERALIZED BODY PAIN AND WEAKNESS. PT ALSO C/O NAUSEA. PT HAD DIALYSIS TODAY (M,W,F). PT AAOX4. RESPIRATIONS EVEN AND UNLABORED. SKIN INTACT. VITAL SIGNS STABLE. NO ACUTE DISTRESS NOTED AT THIS TIME. WILL CONTINUE TO MONITOR
[2020-01-03 20:05] LABS: BASOPHILS % (AUTO) 0.6 % (0.0-2.0); HEMATOCRIT 33 % (33-45); HEMOGLOBIN 11.2 g/dL (11.5-14.8); LYMPHOCYTES # (AUTO) 0.8 /CMM (0.8-4.8); LYMPHOCYTES % (AUTO) 11.6 % (20.0-44.0); MEAN CORPUSCULAR HGB CONC 34 g/dl (31.0-36.0); MEAN CORPUSCULAR VOLUME 96 fL (82-100); MONOCYTES # (AUTO) 0.7 /CMM (0.1-1.30); MONOCYTES % (AUTO) 11.1 % (2.0-12.0); NEUTROPHILS % (AUTO) 75.7 % (43.0-81.0); PLATELET COUNT (AUTO) 281 /CMM (150-450); RED BLOOD CELL COUNT(AUTO) 3.46 MIL/uL (4.0-5.2); WHITE BLOOD COUNT (AUTO) 6.5 K/uL (4.3-11.0)
[2020-01-03 20:18] LABS: CARBON DIOXIDE 36 mmol/L (21-32); CHLORIDE 94 mmol/L (98-107); CREATININE 4.8 mg/dL (0.6-1.3); GLUCOSE 99 mg/dL (74-106); POTASSIUM 4.7 mmol/L (3.5-5.1); SODIUM SERUM 135 mmol/L (136-145); UREA NITROGEN, BLOOD 36 mg/dL (7-18)
[2020-01-03] MEDS ORDERED: ONDANSETRON HCL/PF 4 MG/2 ML VIAL ONE (20:22)
[2020-01-03] MEDS ORDERED: ONDANSETRON HCL/PF - ER 4 MG/2 ML VIAL IV ONE (20:30)
[2020-01-03 20:33] LABS: ALANINE AMINOTRANSFERASE 18 U/L (12-78); ALBUMIN 3.3 g/dL (3.4-5.0); ALKALINE PHOSPHATASE 76 U/L (46-116); ASPARTATE AMINOTRANSFERASE 16 U/L (15-37); BILIRUBIN,DIRECT 0.1 mg/dL (0.0-0.2); BILIRUBIN,TOTAL 0.4 mg/dL (0.2-1.0); LIPASE 336 U/L (73-393); TOTAL PROTEIN, SERUM 8.9 g/dL (6.4-8.2)
[2020-01-03 21:04] LABS: CREATINE KINASE, TOTAL 51 U/L (26-192)
--- NOTE | 2020-01-03 21:32 | NUR ---
Patient discharged to home in stable condition. Written and verbal after care instructions given. Patient verbalizes understanding of instruction.IV removed. Catheter intact and site benign. Pressure and 4x4 applied to site. No bleeding noted.Pt ambulatory with a steady gait
[2020-01-03 21:59] VITALS: BP 144/81
== END 2020-01-03 21:32 | disposition home or self-care (01) ==
LOC: ER 19:26
DX: G89.29 Other chronic pain (principal); M54.2 Cervicalgia; R11.0 Nausea; I12.0 Hypertensive chronic kidney disease with stage 5 chronic kidney disease or end stage renal disease; N18.6 End stage renal disease; E21.3 Hyperparathyroidism, unspecified; F17.200 Nicotine dependence, unspecified, uncomplicated; Z98.890 Other specified postprocedural states; Z60.2 Problems related to living alone; Z79.899 Other long term (current) drug therapy; Z79.82 Long term (current) use of aspirin
CPT/HCPCS: 36415; 71045; 80048; 80076; 82550; 83690; 85025; 93005; 96374; 99285; J2405 ×2

== ENCOUNTER 2021-02-21 22:54 | Inpatient (IN) | payer MEDICARE, OTHER ==
[~2021-02-21] VITALS: Ht 160 cm; Wt 61.7 kg
[~2021-02-21 22:54] MED LIST changes: +LISI10TA29 PO; -LISI10TA5 PO
[2021-02-21] MEDS ORDERED: methylPREDNISolone SOD SUCC 125 MG/2ML VIAL ONE (23:22)
[2021-02-21 23:27] LABS: BASOPHILS # (AUTO) 0.1 K/uL (0.0-0.2); BASOPHILS % (AUTO) 1.2 % (0.0-2.0); EOSINOPHILS % (AUTO) 3.6 % (0.0-6.0); HEMATOCRIT 30 % (33-45); HEMOGLOBIN 9.8 g/dL (11.5-14.8); LYMPHOCYTES # (AUTO) 0.8 K/uL (0.8-4.8); MEAN CORPUSCULAR HGB CONC 33 g/dl (31.0-36.0); MEAN CORPUSCULAR VOLUME 99 fL (82-100); MONOCYTES % (AUTO) 12.3 % (2.0-12.0); NEUTROPHILS # (AUTO) 6.1 K/uL (1.8-8.9); NEUTROPHILS % (AUTO) 72.9 % (43.0-81.0); PLATELET COUNT (AUTO) 302 K/uL (150-450); RED BLOOD CELL COUNT(AUTO) 3.03 MIL/uL (4.0-5.2); WHITE BLOOD COUNT (AUTO) 8.4 K/uL (4.3-11.0)
--- NOTE | 2021-02-21 23:28 | NUR ---
BIANKA FROM HOME TO ER BED 17. AAOX4. DYPNEIC, REPORTED SATTING AT 88% ON RA. NOW ON 3LPM VIA NC SATTING @ 99%. BROUGHT IN FOR DIFFIFICULTY BREATHING. PT IS ON HD LAST SESSION YESTERDAY. WAS AT THE BEDSIDE FOR EVAL. ORDERS RECEIVVED, NOTED AND CARRIED OUT. IV LINE ON THE R HAND 20G, BLOOD DRAWN AND GIVEN TO PHLEB. COVID SWAB DONE. EKG DONE. PT ON MONITOR
[2021-02-21] MEDS ORDERED: methylPREDNISolone SOD SUCC 125 MG/2ML VIAL IV ONE (23:30)
[2021-02-21 23:50] LABS: CALCIUM, SERUM 9.6 mg/dL (8.5-10.1); CARBON DIOXIDE 29 mmol/L (21-32); CHLORIDE 102 mmol/L (98-107); CREATININE 6.6 mg/dL (0.6-1.3); GLUCOSE 108 mg/dL (74-106); POTASSIUM 4.3 mmol/L (3.5-5.1); SODIUM SERUM 144 mmol/L (136-145); UREA NITROGEN, BLOOD 43 mg/dL (7-18)
[2021-02-21 23:55] LABS: ALANINE AMINOTRANSFERASE 15 U/L (12-78); ALBUMIN 2.9 g/dL (3.4-5.0); ALKALINE PHOSPHATASE 138 U/L (46-116); ASPARTATE AMINOTRANSFERASE 13 U/L (15-37); BILIRUBIN,DIRECT 0.1 mg/dL (0.0-0.2); BILIRUBIN,TOTAL 0.2 mg/dL (0.2-1.0); TOTAL PROTEIN, SERUM 7.7 g/dL (6.4-8.2)
[2021-02-22] VITALS (21 sets, daily range): BP systolic 119–165; BP diastolic 64–95
[2021-02-22] MEDS ORDERED: CEFTRIAXONE 1GM BAG (ER ONLY) 1 GM/50 ML PIGGYBACK IV ONE
[2021-02-22] MEDS ORDERED: AZITHROMYCIN 500 MG in IV D5W 250 ML IV ONE
[2021-02-22] MEDS ORDERED: CEFTRIAXONE 1GM BAG (ER ONLY) 50 ML IV ONE (00:09)
[2021-02-22] MEDS ORDERED: AZITHROMYCIN 500 MG VIAL ONE (00:09)
[2021-02-22] MEDS ORDERED: FUROSEMIDE 40 MG/4 ML VIAL ONE (00:09)
[2021-02-22] MEDS ORDERED: IPRATROPIUM NEB FS 0.5 MG/2.5 ML AMPUL.NEB ONE ×2 (00:24→03:06)
[2021-02-22] MEDS ORDERED: ALBUTEROL FS 2.5 MG/3 ML VIAL.NEB ONE (00:28)
[2021-02-22] MEDS ORDERED: clonazePAM 0.5 MG TABLET PO PRN (00:30)
[2021-02-22] MEDS ORDERED: ZOLPIDEM TARTRATE 5 MG TABLET PO PRN (00:30)
[2021-02-22] MEDS ORDERED: ACETAMINOPHEN 325 MG TABLET PO PRN (00:30)
[2021-02-22] MEDS ORDERED: MAGNESIUM HYDROXIDE 30 ML UDC PO PRN (00:30)
[2021-02-22] MEDS ORDERED: FUROSEMIDE 40 MG/4 ML VIAL IV SCH (00:30)
[2021-02-22] MEDS ORDERED: ONDANSETRON HCL/PF 4 MG/2 ML VIAL IVP PRN (00:30)
[2021-02-22] MEDS: ALBUTEROL HALF STRENGTH 1.25 MG/3 ML VIAL.NEB NEB SCH ×6 (00:33→23:30)
[2021-02-22] MEDS: IPRATROPIUM NEB FS 0.5 MG/2.5 ML AMPUL.NEB NEB SCH ×6 (00:33→23:30)
--- NOTE | 2021-02-22 00:44 | NUR ---
rt at bedside
--- NOTE | 2021-02-22 02:28 | NUR ---
Patient is resting comfortably in bed with eyes closed. Easily aroused. VSS
--- NOTE | 2021-02-22 03:04 | NUR ---
NOTED PT HR-170'S. PT DIAPHORETIC AND REPORTS THAT SHE FEELS LIKE SHE IS DROWNING. TEMO SUAREZ DNP MADE AWARE WITH ORDERS RECEIVED. WILL CALL RT TO PLACE PT ON BIPAP.
[2021-02-22] MEDS ORDERED: ALBUTEROL FS 2.5 MG/0.5 ML VIAL.NEB ONE (03:06)
--- NOTE | 2021-02-22 03:10 | NUR ---
RT AT BEDSIDE
--- NOTE | 2021-02-22 03:15 | NUR ---
PT REPOSITIONS ON LEFT SIDE. PT STATES THAT SHE FEELS BETTER. HR 74 AND BP 142/60
--- NOTE | 2021-02-22 03:26 | NUR ---
RT PLACED PT ON BIPAP 15/5, RATE-12, FIO2-40%
--- NOTE | 2021-02-22 03:31 | NUR ---
PT DAUGHTER AZALEA ZHAO
--- NOTE | 2021-02-22 03:51 | NUR ---
REPORT CALLED TO GLOBAL SALES MANAGER ED. WILL TRANSPORT PT VIAL ACLS PROTOCOL.
[2021-02-22] MEDS ORDERED: methylPREDNISolone SOD SUCC 125 MG/2ML VIAL IV SCH (05:00)
[2021-02-22 05:45] LABS: SITE, ABG Right Radial; VENT MODE, BG ST 15/5
[2021-02-22 06:04] LABS: ABG BASE EXCESS 2.6 mmol/L; ABG OXYGEN SATURATION 95.3 % (92.0-98.5); ABG PCO2 51.5 mmHg (35.0-45.0); ABG PH 7.364 (7.350-7.450); ABG PO2 86.5 mmHg (75.0-100.0); MetHb 0.4 % (0.0-1.5)
--- NOTE | 2021-02-22 06:21 | NUR ---
PATIENT PLACED ON BIPAP PER M.D. IN ER WITH SETTINGS OF 15/5, RR 12, 40%. GIVEN TREATMENTS WITH NO ADVERSE REACTIONS. PATIENT TRANSFERRED TO ICU 255. Addendum: 02/22/21 at 0623 by BROWN FOWLER RT Amended: Links added.
--- NOTE | 2021-02-22 06:30 | NUR ---
DIRECTOR OF IN SERVICE EDUCATION NOTES AT 0415 Patient admitted from ED with myrna via ACLS protocol for shortness of breath requiring BIPAP.DX:COPD exacerbation.Patient very drowsy but oriented x3.VSS.Cardiac monitoring reading SR with frequent bigeminy.Denies chest pain nausea or vomiting.Placed on BIPAP 15/5 ,Rate 12,FIO2 40%.SPO2 94%-100%.SL X2 to R hand and RAC intact and patent.LA with AVF positive bruit/thrill. Admission assessment done.AM care done.Kept comfortable.NAD. Safety precaution initiated.Call light at bedside.bed locked and bed alarm on.
[2021-02-22] MEDS: PRAMIPEXOLE DI-HCL 0.25 MG TABLET PO SCH (08:35)
[2021-02-22] MEDS: NIFEdipine XL (30MG) 30 MG TAB PO SCH (08:35)
[2021-02-22] MEDS: LISINOPRIL (10MG) 10 MG TABLET PO SCH (08:35)
[2021-02-22] MEDS: ASPIRIN EC 81 MG TABLET.DR PO SCH (08:35)
[2021-02-22] MEDS: VIT B CMPLX 3/FA/VIT C/BIOTIN 1 TAB TABLET PO SCH (08:35)
[2021-02-22] MEDS: CILOSTAZOL 100 MG TABLET PO SCH ×2 (08:38→20:23)
--- NOTE | 2021-02-22 09:55 | NUR ---
RN NOTE 0715: Received patient resting, drowsy. A/Ox4. On Bipap, tolerated. Tried to titrate off Bipap but patient verbalized she is comfortable with it for now. On iso prec for RO Covid, maintained and observed. 2PIVs intact, flushed. SR on the monitor. LUE AV fistula with + bruit/thrill. 0830: S/E by Dr. Shultz, per MD patient will have HD today. 0930: Patient signed consent for HD. Spoke with Noelle, daughter via phone and updated re: patient's condition. She said she will come by later to warehouse order picker meds to bring home. 0945: S/E by Dr. Cody, with vent changes, made RT aware. Per MD, try to titrate off Bipap after HD. 0955: No any significant changes noted. Kept clean, warm and dry. Needs attended. Kept call light at reach. Will continue to monitor.
--- NOTE | 2021-02-22 18:13 | NUR ---
RN NOTE 1400: Done with HD, reported with 2L out from HD nurse. Able to tolerate diet. On 4LPM of O2 via NC at this time. No respiratory distress noted at this time. Will continue to monitor. 1740: Assisted patient to BR, tolerated with minimal assist. Cleaned patient and changed gown. Informed that needed sputum to send to lab, unable to give specimen at this time. Will follow up. 1800: On 2LPM via NC, tolerated. Kept clean, warm and dry. Needs attended. Kept call light at reach.
--- NOTE | 2021-02-22 20:00 | NUR ---
ICU NOTES Received patient awake alert and oriented x4.Follows simple commands.Independent of bed mobility. SR/ST 107.VS stable.With sob on exertion.Maintain on O2 2L NC saturation wnl.Deneis pain or any discomfort.PAMELA AVF postive bruit and thrill.R hand SL intact and patent.Continue monitoring.
[2021-02-23] VITALS (19 sets, daily range): BP systolic 124–159; BP diastolic 47–94
--- NOTE | 2021-02-23 | NUR ---
ICU NOTES Patient awake in no acute distress tolerating O2 NC.Denies any discomfort.VS remains stable.
[2021-02-23] MEDS: ALBUTEROL HALF STRENGTH 1.25 MG/3 ML VIAL.NEB NEB SCH ×6 (03:23→23:00)
[2021-02-23] MEDS: IPRATROPIUM NEB FS 0.5 MG/2.5 ML AMPUL.NEB NEB SCH ×6 (03:23→23:00)
[2021-02-23 05:34] LABS: HEMATOCRIT 28 % (33-45); LYMPHOCYTES # (AUTO) 0.6 K/uL (0.8-4.8); LYMPHOCYTES % (AUTO) 4.1 % (20.0-44.0); MEAN CORPUSCULAR HGB CONC 33 g/dl (31.0-36.0); MEAN CORPUSCULAR VOLUME 98 fL (82-100); MONOCYTES # (AUTO) 1.1 K/uL (0.1-1.30); NEUTROPHILS # (AUTO) 13.4 K/uL (1.8-8.9); NEUTROPHILS % (AUTO) 88.9 % (43.0-81.0); PLATELET COUNT (AUTO) 314 K/uL (150-450); WHITE BLOOD COUNT (AUTO) 15.1 K/uL (4.3-11.0)
[2021-02-23 05:44] LABS: CALCIUM, SERUM 9.9 mg/dL (8.5-10.1); CARBON DIOXIDE 32 mmol/L (21-32); CHLORIDE 97 mmol/L (98-107); CHOLESTEROL 135 mg/dL (<200); CREATININE 6.1 mg/dL (0.6-1.3); GLUCOSE 125 mg/dL (74-106); HDL CHOLESTEROL 59 mg/dL (40-60); LDL 64 mg/dL (0-99); MAGNESIUM 2.2 mg/dL (1.8-2.4); PHOSPHORUS 5.2 mg/dL (2.5-4.9); POTASSIUM 4.9 mmol/L (3.5-5.1); SODIUM SERUM 137 mmol/L (136-145); TRIGLYCERIDES 48 mg/dL (30-150); UREA NITROGEN, BLOOD 46 mg/dL (7-18)
--- NOTE | 2021-02-23 06:00 | NUR ---
ICU NOTES 0200 Patient still awake.Ambien administered as requested.Bed bath rendered for comfort.All linens changed. Safety precaution implemented.Bed low and locked.Bed alarm on and call light at bedside.Medication effective.
--- NOTE | 2021-02-23 06:37 | NUR ---
RT AEROSOLIZED TX'S HELD UNTIL COVID PCR RESULTS ARE RETURNED.
[2021-02-23] MEDS: VIT B CMPLX 3/FA/VIT C/BIOTIN 1 TAB TABLET PO SCH (08:38)
[2021-02-23] MEDS: CILOSTAZOL 100 MG TABLET PO SCH ×2 (08:38→21:14)
[2021-02-23] MEDS: NIFEdipine XL (30MG) 30 MG TAB PO SCH (08:38)
[2021-02-23] MEDS: ASPIRIN EC 81 MG TABLET.DR PO SCH (08:38)
[2021-02-23] MEDS: LISINOPRIL (10MG) 10 MG TABLET PO SCH (08:38)
[2021-02-23] MEDS: PRAMIPEXOLE DI-HCL 0.25 MG TABLET PO SCH (08:38)
--- NOTE | 2021-02-23 08:55 | NUR ---
RN NOTE 0715: received patient on 2LPM via NC, no respiratory distress noted. A/Ox4. ST 110's on the monitor No c/o chest discomfort. Will continue to monitor. PIV intact. 0840: Tolerated diet well. Meds given as ordered. Stble VS at this time.
--- NOTE | 2021-02-23 11:18 | NUR ---
RN NOTE S/E by Dr. Cody and elin Jennings, both MDs agreed for transfer to Tele.
[2021-02-23] MEDS: AZITHROMYCIN 250 MG TABLET PO SCH (13:36)
[2021-02-23] MEDS: predniSONE 20 MG TABLET PO SCH (13:36)
--- NOTE | 2021-02-23 16:45 | NUR ---
RN NOTE Endorsed care to Luis Alberto HENDRICKS for SKYLAR. PAtient is A/Ox4, aware fro the plan of transfer. VSS, no any significant changes. Kept clean, warm and dry. Needs attended. Stable on 2LPM O2 via NC.
--- NOTE | 2021-02-23 18:31 | NUR ---
RN notes transferred to Tele Rm 115-A, patient is a/o x4, able to make needs known, on oxygen 2lpm via NC, no signs of distress, VSS, PIV access intact and patent, safety measures inititated, bed in lowest locked position with side rails up x2, call light within easy reach, will endorse to night stocker nurse for louise.
--- NOTE | 2021-02-23 19:58 | NUR ---
JACKY/NAIL TECHNICIAN RECIEVED REPORT FROM DAY NURSE. SEE FLOWSHEET FOR ASSESSMENT, ALSO FOR SKIN ISSUES THAT PT MAY HAVE WHICH ARE ADDRESSED HERE ALONG WITH THE INTERVENTIONS FOR EACH. CCALL LIGHT WITHIN REACH.
[2021-02-24] VITALS: BP 141/76
[2021-02-24] MEDS: ALBUTEROL HALF STRENGTH 1.25 MG/3 ML VIAL.NEB NEB SCH ×4 (02:32→15:30)
[2021-02-24] MEDS: IPRATROPIUM NEB FS 0.5 MG/2.5 ML AMPUL.NEB NEB SCH ×6 (02:32→23:30)
[2021-02-24 04:00] VITALS: BP 138/76
--- NOTE | 2021-02-24 07:05 | NUR ---
RN NOTES RECEIVED PT ON BED ,A/Ox4, ON 2L O2 N/C, O2 SAT WNL, ON TELE ST HR IN 110'S , R HAND IV SITE CLEAN, DRY AND INTACT, SR UP x3, CALL LIGHT WITHIN EASY REACH, BED LOCKED AND IN LOWEST POSITION , CONTINUE TO MONITOR .
[2021-02-24 07:45] LABS: ALANINE AMINOTRANSFERASE 17 U/L (12-78); ALBUMIN 2.8 g/dL (3.4-5.0); ALKALINE PHOSPHATASE 115 U/L (46-116); ASPARTATE AMINOTRANSFERASE 11 U/L (15-37); BILIRUBIN,TOTAL 0.3 mg/dL (0.2-1.0); CALCIUM, SERUM 9.3 mg/dL (8.5-10.1); CARBON DIOXIDE 31 mmol/L (21-32); CHLORIDE 95 mmol/L (98-107); GLUCOSE 134 mg/dL (74-106); MAGNESIUM 2.3 mg/dL (1.8-2.4); PHOSPHORUS 6.1 mg/dL (2.5-4.9); POTASSIUM 5.1 mmol/L (3.5-5.1); SODIUM SERUM 136 mmol/L (136-145); TOTAL PROTEIN, SERUM 7.2 g/dL (6.4-8.2); UREA NITROGEN, BLOOD 66 mg/dL (7-18)
[2021-02-24 08:00] VITALS: BP 150/69
--- NOTE | 2021-02-24 08:25 | NUR ---
RT HHN tx not given due to pending PCR COVID results because of risk risk of aerosolization. Addendum: 02/24/21 at 0830 by ADAM FARMER RT Amended: Links added.
[2021-02-24 08:27] LABS: BASOPHILS % (AUTO) 0.1 % (0.0-2.0); HEMATOCRIT 28 % (33-45); LYMPHOCYTES # (AUTO) 0.4 K/uL (0.8-4.8); LYMPHOCYTES % (AUTO) 3.7 % (20.0-44.0); MEAN CORPUSCULAR HGB CONC 32 g/dl (31.0-36.0); MEAN CORPUSCULAR VOLUME 99 fL (82-100); MONOCYTES # (AUTO) 0.8 K/uL (0.1-1.30); MONOCYTES % (AUTO) 6.6 % (2.0-12.0); NEUTROPHILS # (AUTO) 10.7 K/uL (1.8-8.9); NEUTROPHILS % (AUTO) 89.6 % (43.0-81.0); PLATELET COUNT (AUTO) 306 K/uL (150-450); RED BLOOD CELL COUNT(AUTO) 2.81 MIL/uL (4.0-5.2)
[2021-02-24] MEDS: LISINOPRIL (10MG) 10 MG TABLET PO SCH (08:32)
[2021-02-24] MEDS: ASPIRIN EC 81 MG TABLET.DR PO SCH (08:32)
[2021-02-24] MEDS: NIFEdipine XL (30MG) 30 MG TAB PO SCH (08:33)
[2021-02-24] MEDS: PRAMIPEXOLE DI-HCL 0.25 MG TABLET PO SCH (08:33)
[2021-02-24] MEDS: CILOSTAZOL 100 MG TABLET PO SCH ×2 (08:33→20:31)
[2021-02-24] MEDS: predniSONE 20 MG TABLET PO SCH (08:33)
[2021-02-24] MEDS: VIT B CMPLX 3/FA/VIT C/BIOTIN 1 TAB TABLET PO SCH (08:33)
[2021-02-24 09:03] LABS: CREATININE 7.8 mg/dL (0.6-1.3)
--- NOTE | 2021-02-24 09:55 | NUR ---
RN NOTES HR UP TO 160'S 170'S, PT STATED SHE IS SLIGHTLY ANXIOUS , KLONOPIN PO GIVEN , DR JULIA ALLISON, BP 140/82, PT RESTING IN BED, ADENOSINE 6MG AND STAT EKG ORDER . CONTINUE TO MONITOR .
--- NOTE | 2021-02-24 10:10 | NUR ---
RN NOTES PT HR BACK TO 110'S , DR JULIA ALLISON, ADENOSINE 6MG HELD PER DR DUMONT ORDER , CONTINUE TO MONITOR.
[2021-02-24] MEDS ORDERED: ADENOSINE 6 MG/2 ML VIAL IVP ONE (10:30)
[2021-02-24 12:00] VITALS: BP 138/80
[2021-02-24] MEDS: AZITHROMYCIN 250 MG TABLET PO SCH (12:04)
--- NOTE | 2021-02-24 14:00 | NUR ---
RN NOTES HR IN 100'S, NO DISTRESS NOTED, CONTINUITY TO MONITOR.
[2021-02-24] MEDS: METOPROLOL TARTRATE 25 MG TABLET PO SCH ×2 (14:02→20:32)
--- NOTE | 2021-02-24 18:00 | NUR ---
RN NOTES PT IN BED, RESTING , NO DISTRESS NOTED, WILL ENDORSE TO REDIPPER NURSE FOR CONTINUITY OF CARE.
--- NOTE | 2021-02-24 19:20 | NUR ---
RN NOTE RECEIVED PATIENT IN BED RESTING ALERT ORIENTEDX4 VERBALLY RESPONSIVE ON 2L OXYGEN VIA NASAL CANNULA, O2:98% IV SITE IS RIGHT HAND INFILTRATED NOT WORKING,PATIENT AMBULATORY WITH ASSIST INCONTINENT TO BOWEL BLADDER AV SHUNT FOR DIALYSIS IN LEFT UPPER ARM INTACT,SAFETY MEASURE IMPLEMENT,BED IN LOW POSITION AND LOCKED ,CALL LIGHT WITHIN REACH CONTINUE TO MONITOR
--- NOTE | 2021-02-24 19:46 | NUR ---
RT HHN TREATMENT NOT GIVEN DUE TO PENDING PCR TEST . PATIENT STABLE ON 2L NC , NO SOB NOTED. Addendum: 02/24/21 at 1948 by NAPOLEON THOMAS RT Amended: Links added.
[2021-02-24 20:00] VITALS: BP 136/57
--- NOTE | 2021-02-24 20:00 | NUR ---
RN NOTE REMOVED IV LINE ON RIGHT HAND,BECAUSE INFILTRATED COOLING MEASURE PROVIDED,CONTINUE TO MONITOR
--- NOTE | 2021-02-24 20:50 | NUR ---
RN NOTE PATIENT START DIALYSIS ON ROOM CONTINUE TO MONITOR
--- NOTE | 2021-02-24 23:30 | NUR ---
RN NOTE PATIENT DONE DIALYSIS WITH OUT PUT 900CC FLUID,CONTINUE TO MONITOR
[2021-02-25] MEDS: IPRATROPIUM NEB FS 0.5 MG/2.5 ML AMPUL.NEB NEB SCH ×3 (03:30→11:33)
[2021-02-25 04:00] VITALS: BP 118/25
--- NOTE | 2021-02-25 06:00 | NUR ---
RN NOTE START A NEW IV LINE ON LEFT AC #22 G WITH GOOD BLOOD RETURN INTACT PATENT,CONTINUE TO MONITOR Addendum: 02/25/21 at 0723 by CHRISTIAN GARCIA RN RIGHT AC #22
--- NOTE | 2021-02-25 07:29 | NUR ---
RN NOTE PATIENT REMAINS ON ALERT ORIENTED X4 NO SOB NOT ACUTE DISTRESS NOTED ENDORSE NEXT COMING SHIFT FOR CONTINUATION OF CARE.
[2021-02-25 07:31] LABS: BASOPHILS % (AUTO) 0.3 % (0.0-2.0); HEMATOCRIT 30 % (33-45); HEMOGLOBIN 9.6 g/dL (11.5-14.8); LYMPHOCYTES # (AUTO) 0.8 K/uL (0.8-4.8); LYMPHOCYTES % (AUTO) 7.3 % (20.0-44.0); MEAN CORPUSCULAR HGB CONC 32 g/dl (31.0-36.0); MEAN CORPUSCULAR VOLUME 100 fL (82-100); MONOCYTES # (AUTO) 1.2 K/uL (0.1-1.30); MONOCYTES % (AUTO) 10.3 % (2.0-12.0); NEUTROPHILS # (AUTO) 9.4 K/uL (1.8-8.9); NEUTROPHILS % (AUTO) 82.1 % (43.0-81.0); PLATELET COUNT (AUTO) 329 K/uL (150-450); RED BLOOD CELL COUNT(AUTO) 2.98 MIL/uL (4.0-5.2); WHITE BLOOD COUNT (AUTO) 11.5 K/uL (4.3-11.0)
--- NOTE | 2021-02-25 07:41 | NUR ---
RN OPENING NOTE Pt asleep, awake upon verbal and tactile stimuli. No respiratory distress, no SOB. On 02 2 Liters via NC. Safety precautions implemented locked in lowest position, call light within reach.
[2021-02-25 07:50] LABS: ALANINE AMINOTRANSFERASE 21 U/L (12-78); ALBUMIN 2.8 g/dL (3.4-5.0); ALKALINE PHOSPHATASE 118 U/L (46-116); ASPARTATE AMINOTRANSFERASE 13 U/L (15-37); BILIRUBIN,TOTAL 0.3 mg/dL (0.2-1.0); CALCIUM, SERUM 9.2 mg/dL (8.5-10.1); CARBON DIOXIDE 26 mmol/L (21-32); CHLORIDE 103 mmol/L (98-107); CREATININE 5.5 mg/dL (0.6-1.3); GLUCOSE 86 mg/dL (74-106); MAGNESIUM 2.4 mg/dL (1.8-2.4); PHOSPHORUS 5.7 mg/dL (2.5-4.9); POTASSIUM 5.3 mmol/L (3.5-5.1); SODIUM SERUM 140 mmol/L (136-145); UREA NITROGEN, BLOOD 48 mg/dL (7-18)
[2021-02-25] MEDS: VIT B CMPLX 3/FA/VIT C/BIOTIN 1 TAB TABLET PO SCH (08:50)
[2021-02-25] MEDS: ASPIRIN EC 81 MG TABLET.DR PO SCH (08:51)
[2021-02-25] MEDS: LISINOPRIL (10MG) 10 MG TABLET PO SCH (08:51)
[2021-02-25] MEDS: METOPROLOL TARTRATE 25 MG TABLET PO SCH (08:52)
[2021-02-25] MEDS: NIFEdipine XL (30MG) 30 MG TAB PO SCH (08:52)
[2021-02-25] MEDS: PRAMIPEXOLE DI-HCL 0.25 MG TABLET PO SCH (08:55)
[2021-02-25] MEDS: predniSONE 20 MG TABLET PO SCH (08:56)
[2021-02-25] MEDS: CILOSTAZOL 100 MG TABLET PO SCH (08:58)
[2021-02-25] MEDS ORDERED: EPOETIN ALFA-EPBX 4,000 UNIT/ML VIAL SQ ONE (09:00)
[2021-02-25 12:00] VITALS: BP 140/67
[2021-02-25] MEDS: AZITHROMYCIN 250 MG TABLET PO SCH (12:06)
[2021-02-25] MEDS ORDERED: CALCIUM ACETATE 667 MG TABLET PO SCH (13:00)
[2021-02-25] MEDS ORDERED: Calcium Acetate PO (13:18)
[2021-02-25] MEDS ORDERED: AZIT250T PO (13:18)
[2021-02-25] MEDS ORDERED: METH4TAB3 PO (13:18)
[2021-02-25] MEDS ORDERED: APIX5TAB PO (13:18)
[2021-02-25] MEDS ORDERED: METO25TA20 PO (13:18)
--- NOTE | 2021-02-25 14:18 | NUR ---
RN NOTE PATIENT IS AOX4 AND DISCHARGED IN STABLE CONDITION
== END 2021-02-25 15:38 | disposition home or self-care (01) | DRG 640 ==
LOC: ER 22:55 → TRANSITION 23:54 → ICU 02-22 03:53 → TELE1 02-23 17:58
PROVIDERS: ADMIT Nurse Practitioner Acute Care; ATTEND Hospitalist
PROC: 5A1D70Z Performance of Urinary Filtration, Intermittent, Less than 6 Hours Per Day (ICD-10-PCS; principal; 2021-02-23)
DX: E87.70 Fluid overload, unspecified (principal); J96.01 Acute respiratory failure with hypoxia; N18.6 End stage renal disease; J96.02 Acute respiratory failure with hypercapnia; J44.1 Chronic obstructive pulmonary disease with (acute) exacerbation; I13.2 Hypertensive heart and chronic kidney disease with heart failure and with stage 5 chronic kidney disease, or end stage renal disease; I50.32 Chronic diastolic (congestive) heart failure; N25.81 Secondary hyperparathyroidism of renal origin; E44.0 Moderate protein-calorie malnutrition; I47.1 Supraventricular tachycardia; Z99.2 Dependence on renal dialysis; I48.91 Unspecified atrial fibrillation; E78.5 Hyperlipidemia, unspecified; Z20.822 Contact with and (suspected) exposure to COVID-19; D64.9 Anemia, unspecified; G89.29 Other chronic pain; Z98.890 Other specified postprocedural states; Z79.51 Long term (current) use of inhaled steroids; Z79.899 Other long term (current) drug therapy; Z79.82 Long term (current) use of aspirin; I27.20 Pulmonary hypertension, unspecified; F17.200 Nicotine dependence, unspecified, uncomplicated; D63.8 Anemia in other chronic diseases classified elsewhere; R34 Anuria and oliguria; Z79.02 Long term (current) use of antithrombotics/antiplatelets
CPT/HCPCS: 36415; 36600; 71045-TC; 80048-TC; 80053-TC; 80061-TC; 80076-TC; 82803-TC; 83605-TC; 83735-TC; 83880; 84100-TC; 84484-TC; 85025-TC; 85730-TC; 86704; 86706; 87040-TC; 87070-TC; 87081-TC; 87340; 90935-TC; 93307-TC; 94799-TC; C9803; G0378; J0456; J0696; J0885; J1940; J2405; J2930; J7060; U0003

== ENCOUNTER 2021-08-16 12:36 | Inpatient (IN) | payer MEDICARE, OTHER ==
[~2021-08-16] VITALS: Ht 160 cm; Wt 58.2 kg
[~2021-08-16 12:36] MED LIST changes: -ALBU18HF2; +APIX5TAB PO; +AZIT250T PO; -CARV6.252 PO; -CLON0.1T14 PO; +Calcium Acetate PO; -LEVO750T21 PO; +METH4TAB3 PO; +METO25TA20 PO
--- NOTE | 2021-08-16 12:40 | NUR ---
AT BEDSIDE FOR EVAL.
--- NOTE | 2021-08-16 12:43 | NUR ---
PT BIBA RA102 From Home "Cough/tickle on throat/HTN/Abnormal blood test". PT A/OX3. PT TOLERATING O2 2LPM VIA N/C AT 98%. PAMELA HD AV FISTULA; POSITIVE BRUIT & THRILL. CONNECTED PT TO POX AND MONITOR. SAFETY MEASURES IN PLACE
--- NOTE | 2021-08-16 13:08 | NUR ---
RAC #18G S/L; PATENT AND INTACT. BLOOD AND COVID ANTIGEN SWAB COLLECTED AND SENT TO LAB
[2021-08-16 13:22] LABS: BASOPHILS # (AUTO) 0.1 K/uL (0.0-0.2); BASOPHILS % (AUTO) 1.3 % (0.0-2.0); EOSINOPHILS % (AUTO) 1.1 % (0.0-6.0); LYMPHOCYTES # (AUTO) 0.4 K/uL (0.8-4.8); LYMPHOCYTES % (AUTO) 6.5 % (20.0-44.0); MEAN CORPUSCULAR HGB CONC 32 g/dl (31.0-36.0); MEAN CORPUSCULAR VOLUME 94 fL (82-100); MONOCYTES # (AUTO) 0.9 K/uL (0.1-1.30); MONOCYTES % (AUTO) 12.9 % (2.0-12.0); NEUTROPHILS # (AUTO) 5.4 K/uL (1.8-8.9); NEUTROPHILS % (AUTO) 78.2 % (43.0-81.0); PLATELET COUNT (AUTO) 398 K/uL (150-450); RED BLOOD CELL COUNT(AUTO) 2.05 MIL/uL (4.0-5.2); WHITE BLOOD COUNT (AUTO) 6.9 K/uL (4.3-11.0)
--- NOTE | 2021-08-16 13:23 | NUR ---
BENEFITS SPECIALIST RECRUITER AT PT'S BEDSIDE
[2021-08-16 13:26] LABS: HEMOGLOBIN 6.2 g/dL (11.5-14.8)
[2021-08-16 13:27] LABS: HEMATOCRIT 19 % (33-45)
--- NOTE | 2021-08-16 13:27 | NUR ---
HGB 6.2; NOTIFIED DR NANDA JETER.
--- NOTE | 2021-08-16 13:35 | NUR ---
MOVE SHEET SUBMITTED AND CALLED FOR TELE BED.
[2021-08-16 13:44] LABS: LYMPHOCYTES % (MANUAL) 6 % (16-48); MONOCYTES % (MANUAL) 11 % (0-11.0); NEUTROPHILS % (MANUAL) 83 (42-76)
[2021-08-16 13:55] LABS: ALANINE AMINOTRANSFERASE 14 U/L (12-78); ALBUMIN 2.6 g/dL (3.4-5.0); ALKALINE PHOSPHATASE 160 U/L (46-116); ASPARTATE AMINOTRANSFERASE 31 U/L (15-37); BILIRUBIN,DIRECT 0.1 mg/dL (0.0-0.2); BILIRUBIN,TOTAL 0.3 mg/dL (0.2-1.0); CALCIUM, SERUM 9.4 mg/dL (8.5-10.1); CARBON DIOXIDE 33 mmol/L (21-32); CHLORIDE 94 mmol/L (98-107); CREATININE 2.4 mg/dL (0.6-1.3); GLUCOSE 87 mg/dL (74-106); POTASSIUM 4.9 mmol/L (3.5-5.1); SODIUM SERUM 133 mmol/L (136-145); TOTAL PROTEIN, SERUM 7.8 g/dL (6.4-8.2); UREA NITROGEN, BLOOD 17 mg/dL (7-18)
--- NOTE | 2021-08-16 14:29 | NUR ---
[facility] CALLED DRIVE IN THEATER ATTENDANT PAGED.
[2021-08-16] MEDS ORDERED: AZITHROMYCIN 500 MG in IV D5W 250 ML IV ONE (14:30)
[2021-08-16] MEDS ORDERED: CEFTRIAXONE 1 G in IV D5W 50 ML IV ONE (14:30)
[2021-08-16] MEDS ORDERED: ASPIRIN 81 MG TAB.CHEW PO ONE (14:30)
[2021-08-16] MEDS ORDERED: CEFTRIAXONE 1GM BAG (ER ONLY) 50 ML IV ONE (14:52)
[2021-08-16] MEDS ORDERED: ASPIRIN 325 MG TABLET ONE (14:53)
--- NOTE | 2021-08-16 15:15 | NUR ---
PT AGREED AND SIGNED BLOOD TRANSFUSION CONSENT FORM; VERBALIZED UNDERSTANDING OF RISKS VS BENEFITS.
--- NOTE | 2021-08-16 15:23 | NUR ---
ARVIN RICHARDS CHEMIST BIOLOGICAL AT PT'S BEDSIDE
[2021-08-16] MEDS ORDERED: ONDANSETRON HCL/PF 4 MG/2 ML VIAL IVP PRN (17:30)
[2021-08-16] MEDS ORDERED: Z GUARD REMEDY 4 OZ OINT TP PRN (17:30)
--- NOTE | 2021-08-16 17:34 | NUR ---
REPORT GIVEN TO NIKOS Marion RN FOR SKYLAR
--- NOTE | 2021-08-16 18:29 | NUR ---
PT TRANSFERRED TO 310-1 VIA ACLS PROTOCOL. ALL BELONGINGS WITH PT. PT TOLERATED TRANSFER WELL.
--- NOTE | 2021-08-16 19:20 | NUR ---
STRIKE WARFARE/MISSILE SYSTEMS OFFICER OPENING NOTES: RECEIVED PATIENT IN BED, AWAKE, A/O X4. NO S/S OF DISTRESS NOTED. NO COMPLAIN OF PAIN. CALL LIGHT WITHIN REACH. BED ALARM ON. BED IN LOWEST AND LOCKED POSITION. INSTRUCTED PATIENT TO STAY IN BED, PATIENT VERBALIZED UNDERSTANDING. WITH O2 AT 2L/MIN NASAL CANNULA. WITH LEFT UPPER ARM AV SHUNT, WITH THE SIGN POSTED ON THE WALL NO BP AND IV AND BLOOD DRAW ON THE LEFT ARM. CALLED THE LAB RE: IF BLOOD IS READY, THEY WILLCALL WHEN IT'S READY.
[2021-08-16 20:00] VITALS: BP 138/61
[2021-08-16] MEDS: ALBUTEROL FS 2.5 MG/3 ML VIAL.NEB NEB SCH (20:18)
[2021-08-16] MEDS: IPRATROPIUM NEB FS 0.5 MG/2.5 ML AMPUL.NEB NEB SCH (20:18)
[2021-08-16] MEDS ORDERED: HEPARIN SODIUM, PORCINE 5000 UNITS/1 ML VIAL SQ SCH (21:00)
[2021-08-16] MEDS: DOXYCYCLINE 100 MG in IV D5W 100 ML IV SCH (22:50)
[2021-08-16] MEDS: methylPREDNISolone SOD SUCC 125 MG/2ML VIAL IV SCH (22:52)
[2021-08-16] MEDS: ACETAMINOPHEN 325 MG TABLET PO PRN (23:08)
[2021-08-17] VITALS (10 sets, daily range): BP systolic 133–154; BP diastolic 50–79
[2021-08-17] MEDS: IPRATROPIUM NEB FS 0.5 MG/2.5 ML AMPUL.NEB NEB SCH ×4 (02:18→20:26)
[2021-08-17] MEDS: ALBUTEROL FS 2.5 MG/3 ML VIAL.NEB NEB SCH ×4 (02:18→20:26)
--- NOTE | 2021-08-17 04:30 | NUR ---
CALLED THE BLOOD BANK AND TALKED TO DEANNA ALATORRE: IF THE BLOOD IS READY. SHE SAID SHE WILL CHECK AND WILL CALL.
[2021-08-17] MEDS: methylPREDNISolone SOD SUCC 125 MG/2ML VIAL IV SCH ×3 (04:48→20:36)
[2021-08-17] MEDS: PANTOPRAZOLE 40 MG TABLET.DR PO SCH (07:30)
[2021-08-17] MEDS: DOXYCYCLINE 100 MG in IV D5W 100 ML IV SCH ×2 (09:00→20:39)
--- NOTE | 2021-08-17 09:26 | NUR ---
RN NOTES S/P BLOOD TRANSFUSION W/ 1PRBC. POST-TRANSFUSION VS TAKEN AND DOCUMENTED. NO TRANSFUSION REACTION NOTED. PATIENT RESTING IN BED, NOT IN ACUTE DISTRESS. WILL CONTINUE TO MONITOR.
--- NOTE | 2021-08-17 11:27 | NUR ---
RN NOTES PATIENT CURRENTLY BEING DIALYZED AT THIS TIME; PER HD NURSE, HOLD DOXY IV AND GIVE AFTER. UNABLE TO GIVE MEDICATION EARLIER BECAUSE PATIENT IS HAVING BLOOD TRANSFUSION.
[2021-08-17 12:33] LABS: BASOPHILS % (AUTO) 0.5 % (0.0-2.0); HEMATOCRIT 22 % (33-45); HEMOGLOBIN 7.2 g/dL (11.5-14.8); LYMPHOCYTES # (AUTO) 0.3 K/uL (0.8-4.8); LYMPHOCYTES % (AUTO) 3.8 % (20.0-44.0); MEAN CORPUSCULAR HGB CONC 32 g/dl (31.0-36.0); MEAN CORPUSCULAR VOLUME 95 fL (82-100); MONOCYTES # (AUTO) 0.2 K/uL (0.1-1.30); MONOCYTES % (AUTO) 2.6 % (2.0-12.0); NEUTROPHILS # (AUTO) 7.5 K/uL (1.8-8.9); NEUTROPHILS % (AUTO) 93.1 % (43.0-81.0); PLATELET COUNT (AUTO) 361 K/uL (150-450); RED BLOOD CELL COUNT(AUTO) 2.35 MIL/uL (4.0-5.2); WHITE BLOOD COUNT (AUTO) 8.1 K/uL (4.3-11.0)
[2021-08-17 12:46] LABS: CALCIUM, SERUM 10.2 mg/dL (8.5-10.1); CARBON DIOXIDE 31 mmol/L (21-32); CHLORIDE 98 mmol/L (98-107); CREATININE 3.6 mg/dL (0.6-1.3); GLUCOSE 154 mg/dL (74-106); MAGNESIUM 2.6 mg/dL (1.8-2.4); PHOSPHORUS 5.8 mg/dL (2.5-4.9); POTASSIUM 4.8 mmol/L (3.5-5.1); SODIUM SERUM 137 mmol/L (136-145); UREA NITROGEN, BLOOD 28 mg/dL (7-18)
--- NOTE | 2021-08-17 19:25 | NUR ---
RN NOTES PATIENT RESTING IN BED, AWAKE AND VERBALLY RESPONSIVE. ABLE TO GIVE DOXYCYCLINE IV AFTER HD TODAY. NO COMPLAINT OF PAIN NOR DISCOMFORT. ATE WELL FOR LUNCH AND DINNER. SAFETY MEASURES MAINTAINED. ENDORSED TO CHARGE ENTRY CLERK RN FOR SKYLAR.
--- NOTE | 2021-08-17 19:30 | NUR ---
ANGLE DOZER OPERATOR OPENING NOTE RECEIVED PATIENT IN BED. A/OX3-4, DIVEHI SPEAKING. NO S/S OF APPARENT DISTRESS. DENIES PAIN. ABLE TO MAKE NEEDS KNOWN. PATIENT TELE MONITOR ON STANDBY WHEN RECEIVED PATIENT. NO FLUIDS RUNNING AT THIS TIME. SAFETY IN PLACE. WILL CONTINUE WITH PLAN OF CARE FOR PATIENT.
--- NOTE | 2021-08-17 20:00 | NUR ---
TELE MONITOR READING SR-ST (96-101 BPM).
[2021-08-17] MEDS: METOPROLOL TARTRATE 25 MG TABLET PO SCH (20:35)
--- NOTE | 2021-08-17 22:19 | NUR ---
REVERBERATORY SKIMMER NOTE PATIENT C/O SEVERE ITCHINESS UNRELIEVED BY LOTION/Z-GUARD. MESSAGED DOCTOR PEGGY IF SHE WANTS TO ORDER SOMETHING. AWAITING DOCTOR'S ORDER.
--- NOTE | 2021-08-17 22:36 | NUR ---
COLLEGE FOOTBALL COACH NOTE DOCTOR ORDERED BENADRYL 25MG IV ONE TIME. WILL CARRY OUT ORDER.
[2021-08-17] MEDS ORDERED: diphenhydrAMINE HCL 50 MG/ML VIAL IV ONE (23:00)
[2021-08-18 00:54] VITALS: BP 144/85
[2021-08-18] MEDS: IPRATROPIUM NEB FS 0.5 MG/2.5 ML AMPUL.NEB NEB SCH ×3 (01:22→12:46)
[2021-08-18] MEDS: ALBUTEROL FS 2.5 MG/3 ML VIAL.NEB NEB SCH ×3 (01:22→12:46)
[2021-08-18 04:33] VITALS: BP 125/58
[2021-08-18] MEDS: methylPREDNISolone SOD SUCC 125 MG/2ML VIAL IV SCH ×3 (04:44→19:42)
[2021-08-18 07:08] LABS: CALCIUM, SERUM 9.9 mg/dL (8.5-10.1); CARBON DIOXIDE 28 mmol/L (21-32); CHLORIDE 97 mmol/L (98-107); CREATININE 3.5 mg/dL (0.6-1.3); GLUCOSE 141 mg/dL (74-106); MAGNESIUM 2.5 mg/dL (1.8-2.4); PHOSPHORUS 6.6 mg/dL (2.5-4.9); SODIUM SERUM 134 mmol/L (136-145); UREA NITROGEN, BLOOD 36 mg/dL (7-18)
[2021-08-18 07:15] LABS: HEMATOCRIT 24 % (33-45); HEMOGLOBIN 7.7 g/dL (11.5-14.8); LYMPHOCYTES # (AUTO) 0.4 K/uL (0.8-4.8); LYMPHOCYTES % (AUTO) 3.7 % (20.0-44.0); MEAN CORPUSCULAR HGB CONC 32 g/dl (31.0-36.0); MEAN CORPUSCULAR VOLUME 97 fL (82-100); MONOCYTES # (AUTO) 0.5 K/uL (0.1-1.30); MONOCYTES % (AUTO) 4.5 % (2.0-12.0); NEUTROPHILS % (AUTO) 91.8 % (43.0-81.0); PLATELET COUNT (AUTO) 379 K/uL (150-450); RED BLOOD CELL COUNT(AUTO) 2.51 MIL/uL (4.0-5.2); WHITE BLOOD COUNT (AUTO) 10.9 K/uL (4.3-11.0)
--- NOTE | 2021-08-18 07:29 | NUR ---
RT NOTE. RECEIVED PT ON 4 LPM NC SPO2 95% TX GIVEN. NO SOB OR S/S OF ACUTE RESPIRATORY DISTRESS NOTED. WILL CONTINUE TO MONITOR T/O SHIFT.
--- NOTE | 2021-08-18 07:30 | NUR ---
PATIENT NAVIGATOR OPENING NOTES RECEIVED PATIENT ON BED AWAKE AND A/O X4. ON O2 AT 2LPM VIA NASAL CANNULA TOLERATING WELL. NO SOB NOTED. NOT IN DISTRESS. WITH NO COMPLAINTS OF PAIN OR DISCOMFORT AT THIS TIME. WITH IV ACCESS AT RIGHT UPPER ARM G20 SALINE LOCKED, INTACT AND PATENT. ON TELE MONITOR CURRENTLY READING SINUS RHYTHM AT 83BPM. SAFETY MEASURES IN PLACED. CALL LIGHT WITHIN REACH. BED ON LOWEST LOCKED POSITION, SIDE RAILS UP X2. WILL CONTINUE TO MONITOR.
--- NOTE | 2021-08-18 07:33 | NUR ---
telephoto engineer note no significant change. report given to Mora for continuity of care.
[2021-08-18 08:00] VITALS: BP 139/61
[2021-08-18] MEDS: PANTOPRAZOLE 40 MG TABLET.DR PO SCH (09:10)
[2021-08-18] MEDS: METOPROLOL TARTRATE 25 MG TABLET PO SCH ×2 (09:10→21:54)
[2021-08-18] MEDS: DOXYCYCLINE 100 MG in IV D5W 100 ML IV SCH ×2 (09:10→20:21)
[2021-08-18 12:00] VITALS: BP 150/88
[2021-08-18] MEDS ORDERED: IPRATROPIUM NEB FS 0.5 MG/2.5 ML AMPUL.NEB NEB PRN (15:00)
[2021-08-18] MEDS ORDERED: ALBUTEROL FS 2.5 MG/3 ML VIAL.NEB NEB PRN (15:00)
[2021-08-18 16:00] VITALS: BP 141/50
--- NOTE | 2021-08-18 19:20 | NUR ---
LEAD MANUFACTURING ENGINEER OPENING RECEIVED PATIENT IN BED. JUST FINISHED WITH HEMODIALYSIS. A/OX4. NO S/S OF APPARENT DISTRESS ON 3LPM OF O2 VIA NC. DENIES PAIN. TELE MONITOR READING SR 89BPM. PATIENT NEEDS ATTENDED AT THIS TIME. NO FLUIDS RUNNING AT THIS TIME. SAFETY IN PLACE. WILL CONTINUE TO MONITOR PATIENT AND CONTINUE WITH PLAN OF CARE.
--- NOTE | 2021-08-18 19:20 | NUR ---
SHROUD LINE TIER CLOSING NOTES PATIENT ON BED RESTING AND A/O X4, UPPER SORBIAN SPEAKING. ON O2 AT 2LPM VIA NASAL CANNULA TOLERATING WELL. NO SOB NOTED. NOT IN DISTRESS. WITH NO COMPLAINTS OF PAIN OR DISCOMFORT AT THIS TIME. WITH IV ACCESS AT RIGHT UPPER ARM G20 SALINE LOCKED, INTACT AND PATENT. WITH LEFT AV SHUNT FOR HEMODIALYSIS. PATIENT ON STATUS POST HEMODIALYSIS WITH AN OUTPUT OF 2.5L. ON TELE MONITOR CURRENTLY READING SINUS RHYTHM AT 82BPM. SAFETY MEASURES IN PLACED. CALL LIGHT WITHIN REACH. BED ON LOWEST LOCKED POSITION, SIDE RAILS UP X2. WILL ENDORSE TO NEXT SHIFT FOR SKYLAR.
--- NOTE | 2021-08-18 19:43 | NUR ---
CRM SOLUTION ARCHITECT NOTE SCHEDULED 1700 SOLU-MEDROL GIVEN LATE. PATIENT JUST FINISHED EATING AFTER HD.
[2021-08-18 20:45] VITALS: BP 122/59
[2021-08-19] VITALS: BP 118/50
[2021-08-19] MEDS ORDERED: ACETAMINOPHEN 325 MG TABLET ONE (03:30)
[2021-08-19] MEDS: ACETAMINOPHEN 325 MG TABLET PO PRN (03:32)
--- NOTE | 2021-08-19 03:39 | NUR ---
ENTERPRISE APPLICATIONS MANAGER NOTE PAIN C/O OF MILD PAIN ON HER R. ARM THAT IS NON-RADIATING. FOR SOME REASON I CANNOT PULL OUT MEDICATIONS IN THE OMNICELL FOR MY PATIENT. HENCE I TALKED TO MY CHARGE, SARAY. AND AFTER MULTIPLE ATTEMPTS TO FIX THE PROBLEM WE WERE UNABLE TO HENCE SARAY CHARGE NURSE PULLED OUT 650 MG OF TYLENOL INSTEAD. GIVEN TO PATIENT AT THIS TIME. WILL REASSESS PAIN.
[2021-08-19 04:46] VITALS: BP 131/52
[2021-08-19 06:41] LABS: HEMATOCRIT 24 % (33-45); HEMOGLOBIN 7.5 g/dL (11.5-14.8); LYMPHOCYTES # (AUTO) 0.4 K/uL (0.8-4.8); LYMPHOCYTES % (AUTO) 2.8 % (20.0-44.0); MEAN CORPUSCULAR HGB CONC 32 g/dl (31.0-36.0); MEAN CORPUSCULAR VOLUME 97 fL (82-100); MONOCYTES # (AUTO) 0.8 K/uL (0.1-1.30); MONOCYTES % (AUTO) 6.2 % (2.0-12.0); NEUTROPHILS # (AUTO) 11.4 K/uL (1.8-8.9); PLATELET COUNT (AUTO) 368 K/uL (150-450); RED BLOOD CELL COUNT(AUTO) 2.42 MIL/uL (4.0-5.2); WHITE BLOOD COUNT (AUTO) 12.5 K/uL (4.3-11.0)
--- NOTE | 2021-08-19 06:49 | NUR ---
SUPERVISOR CARTOGRAPHY CLOSING NOTE PATIENT IN BED WITH EYES CLOSED. EASY TO AROUSE. NO S/S OF APPARENT DISTRESS ON ROOM AIR FOR NOW. PAIN RELIEVED BY TYLENOL. TELE MONITOR READING SR 60'S BPM. ALL NEEDS ATTENDED. ALL SCHEDULED MEDICATION ADMINISTERED. SAFETY KEPT IN PLACE THE WHOLE SHIFT. NO SIGNIFICANT CHANGE SINCE LAST ENDORSEMENT. WILL ENDORSE TO MORNING SHIFT RN FOR CONTINUITY OF CARE.
[2021-08-19 07:11] LABS: CALCIUM, SERUM 9.8 mg/dL (8.5-10.1); CARBON DIOXIDE 28 mmol/L (21-32); CHLORIDE 98 mmol/L (98-107); CREATININE 3.2 mg/dL (0.6-1.3); GLUCOSE 120 mg/dL (74-106); MAGNESIUM 2.4 mg/dL (1.8-2.4); PHOSPHORUS 7.4 mg/dL (2.5-4.9); POTASSIUM 4.9 mmol/L (3.5-5.1); SODIUM SERUM 137 mmol/L (136-145); UREA NITROGEN, BLOOD 43 mg/dL (7-18)
--- NOTE | 2021-08-19 07:30 | NUR ---
OPTIMIZATION ENGINEER OPENING NOTES RECEIVED PATIENT ON BED RESTING AND A/O X4. ON ROOM AIR TOLERATING WELL. NO SOB NOTED. NOT IN DISTRESS. WITH NO COMPLAINTS OF PAIN OR DISCOMFORT AT THIS TIME. WITH IV ACCESS AT RIGHT FOREARM G20 SALINE LOCKED, PATENT AND INTACT. ON TELE MONITOR CURRENTLY READING 63BPM. WITH LEFT AV SHUNT FOR HD. SAFETY MEASURES IN PLACED. CALL LIGHT WITHIN REACH. BED ON LOWEST LOCKED POSITION, SIDE RAILS UP X2. WILL CONTINUE TO MONITOR.
[2021-08-19 08:00] VITALS: BP 127/57
[2021-08-19] MEDS: DOXYCYCLINE 100 MG in IV D5W 100 ML IV SCH ×2 (10:06→21:14)
[2021-08-19] MEDS: methylPREDNISolone SOD SUCC 125 MG/2ML VIAL IV SCH ×2 (10:08→16:46)
[2021-08-19] MEDS: PANTOPRAZOLE 40 MG TABLET.DR PO SCH (10:08)
[2021-08-19] MEDS: METOPROLOL TARTRATE 25 MG TABLET PO SCH ×2 (10:09→21:13)
[2021-08-19 12:00] VITALS: BP 121/66
[2021-08-19 16:00] VITALS: BP 117/49
--- NOTE | 2021-08-19 18:40 | NUR ---
ERP PROJECT MANAGER CLOSING NOTES PATIENT ON BED RESTING AND A/O X4. ON O2 AT 2LPM TOLERATING WELL. NO SOB NOTED. NOT IN DISTRESS. WITH NO COMPLAINTS OF PAIN OR DISCOMFORT AT THIS TIME. WITH IV ACCESS AT RIGHT FOREARM G20 SALINE LOCKED, PATENT AND INTACT. ON TELE MONITOR CURRENTLY READING 69BPM. WITH LEFT AV SHUNT FOR HD. SAFETY MEASURES IN PLACED. CALL LIGHT WITHIN REACH. BED ON LOWEST LOCKED POSITION, SIDE RAILS UP X2. WILL ENDORSE TO NEXT SHIFT FOR SKYLAR.
--- NOTE | 2021-08-19 19:37 | NUR ---
PROJECT ANALYST OPENING NOTE PATIENT RECEIVED ASLEEP IN BED. A/0X4. NO S/S OF DISTRESS, BREATHING SYMMETRICAL. TELE MONITOR SHOWS SR W/ PAC 70. SAFETY MEASURES IN PLACE: BED AT LOWEST POSITION, RAILS UP X2, CALL CHAND WITHIN REACH. WILL CONTINUE TO MONITOR.
[2021-08-19 20:00] VITALS: BP 126/48
[2021-08-20] VITALS: BP 128/59
[2021-08-20 04:00] VITALS: BP 125/66
--- NOTE | 2021-08-20 06:21 | NUR ---
TRAFFIC CHIEF CLOSING NOTE PATIENT ASLEEP IN BED. A/OX3-4. NO S/S OF DISTRESS, BREATHING SYMMETRICAL. RFA #20 INTACT AND PATENT. TELE MONITOR REVEALS SR 70 W PAC. SAFETY MEASURES IN PLACE: BED AT LOWEST POSITION, RAILS UP X2, CALL CHAND WITHIN REACH. WILL ENDORSE TO NEXT SHIFT FOR SKYLAR.
[2021-08-20 06:54] LABS: BASOPHILS % (AUTO) 0.1 % (0.0-2.0); HEMATOCRIT 24 % (33-45); HEMOGLOBIN 7.7 g/dL (11.5-14.8); LYMPHOCYTES # (AUTO) 0.4 K/uL (0.8-4.8); LYMPHOCYTES % (AUTO) 4.1 % (20.0-44.0); MEAN CORPUSCULAR HGB CONC 32 g/dl (31.0-36.0); MEAN CORPUSCULAR VOLUME 98 fL (82-100); MONOCYTES # (AUTO) 0.9 K/uL (0.1-1.30); MONOCYTES % (AUTO) 8.9 % (2.0-12.0); NEUTROPHILS # (AUTO) 8.6 K/uL (1.8-8.9); NEUTROPHILS % (AUTO) 86.9 % (43.0-81.0); PLATELET COUNT (AUTO) 391 K/uL (150-450); RED BLOOD CELL COUNT(AUTO) 2.49 MIL/uL (4.0-5.2); WHITE BLOOD COUNT (AUTO) 9.9 K/uL (4.3-11.0)
--- NOTE | 2021-08-20 07:47 | NUR ---
CHEMICAL WASTE MANAGEMENT TECHNICIAN OPENING NOTE Patient in bed, asleep. A/O x 3-4. On O2 at 3 LPM via NC, breathing evenly and unlabored. No SOB or s/s of distress noted. IV access on RFA #20G, intact and patent. On tele monitoring showing SR, HR on the 70's. Safety precautions in place: bed in low, locked position; siderails up x 2; call light within reach. Will continue to monitor.
[2021-08-20 08:00] VITALS: BP 126/65
[2021-08-20 08:20] LABS: CALCIUM, SERUM 9.9 mg/dL (8.5-10.1); CARBON DIOXIDE 22 mmol/L (21-32); CHLORIDE 97 mmol/L (98-107); CREATININE 5.5 mg/dL (0.6-1.3); GLUCOSE 137 mg/dL (74-106); SODIUM SERUM 136 mmol/L (136-145)
[2021-08-20] MEDS: METOPROLOL TARTRATE 25 MG TABLET PO SCH (08:34)
[2021-08-20] MEDS: PANTOPRAZOLE 40 MG TABLET.DR PO SCH (08:34)
[2021-08-20] MEDS: methylPREDNISolone SOD SUCC 125 MG/2ML VIAL IV SCH ×2 (08:35→16:17)
[2021-08-20] MEDS: DOXYCYCLINE 100 MG in IV D5W 100 ML IV SCH (08:39)
[2021-08-20 08:50] LABS: UREA NITROGEN, BLOOD 88 mg/dL (7-18)
[2021-08-20 16:00] VITALS: BP 130/50
--- NOTE | 2021-08-20 19:32 | NUR ---
DISCHARGE NOTE Received patient for discharge. Patient A/O x 3, able to make needs known. On O2 at 3 LPM, breathing evenly and unlabored. No s/s of distress noted. Discharge instructions given verbally and in written form, verbalized understanding. All belongings accounted for, belonging sheet signed. Report given to Steph, field pipe lines supervisor of [facility]. IV access removed, catheter tip intact; pressure dressing applied, no signs of bleeding noted. Exitcare folder given to EMT. Patient left in stable condition with 2 turn down worker present.
== END 2021-08-20 19:32 | DRG 280 ==
LOC: ER 12:40 → TELE 17:02
PROVIDERS: ADMIT Nurse Practitioner Family; ATTEND Internal Medicine
PROC: 30233N1 Transfusion of Nonautologous Red Blood Cells into Peripheral Vein, Percutaneous Approach (ICD-10-PCS; 2021-08-16)
PROC: 5A1D70Z Performance of Urinary Filtration, Intermittent, Less than 6 Hours Per Day (ICD-10-PCS; principal; 2021-08-17)
DX: I13.2 Hypertensive heart and chronic kidney disease with heart failure and with stage 5 chronic kidney disease, or end stage renal disease (principal); I50.33 Acute on chronic diastolic (congestive) heart failure; I21.A1 Myocardial infarction type 2; N18.6 End stage renal disease; J96.21 Acute and chronic respiratory failure with hypoxia; J44.1 Chronic obstructive pulmonary disease with (acute) exacerbation; E44.0 Moderate protein-calorie malnutrition; E87.1 Hypo-osmolality and hyponatremia; N25.81 Secondary hyperparathyroidism of renal origin; J44.0 Chronic obstructive pulmonary disease with (acute) lower respiratory infection; I27.20 Pulmonary hypertension, unspecified; E11.22 Type 2 diabetes mellitus with diabetic chronic kidney disease; G89.29 Other chronic pain; F17.200 Nicotine dependence, unspecified, uncomplicated; D64.9 Anemia, unspecified; I70.0 Atherosclerosis of aorta; M89.9 Disorder of bone, unspecified; Z98.890 Other specified postprocedural states; Z79.82 Long term (current) use of aspirin; Z79.899 Other long term (current) drug therapy; Z79.02 Long term (current) use of antithrombotics/antiplatelets; Z79.01 Long term (current) use of anticoagulants; Z99.2 Dependence on renal dialysis
CPT/HCPCS: 36415; 71045-TC; 80048-TC; 80076-TC; 82728-TC; 83540-TC; 83605-TC; 83735-TC; 83880; 84100-TC; 84484-TC; 85025-TC; 85730-TC; 86706; 86850-TC; 87040-TC; 87081-TC; 87340; 90935-TC; 94799-TC; 97110-TC; 97116-TC; 97530-TC; C9803; G0378; J0456; J0696; J1200; J2930; J3490; J7030; J7040; J7050; J7060; P9016

== ENCOUNTER 2021-08-20 20:24 | Emergency (ER) | payer MEDICARE, OTHER ==
[~2021-08-20] VITALS: Ht 160 cm; Wt 58.1 kg
[~2021-08-20 20:24] MED LIST changes: -APIX5TAB PO; -ASPI81TA44 PO; -AZIT250T PO; -CILO50TA PO; -CLON0.5T4 PO; -Calcium Acetate PO; -FOLI0.8T23 PO; -LISI10TA29 PO; -METH4TAB3 PO; -NIFE-35 PO; -PRAM0.129 PO
[2021-08-20 21:04] VITALS: BP 138/62
--- NOTE | 2021-08-20 21:15 | NUR ---
PATIENT FLORA FROM [facility]. PATIENT WAS D/C FROM [facility] JUST NOW AND REFUSED TO STAY AT THE SNF. DENIED ANY PAIN OR DISCOMFORT ON D/C. PATIENT VSS.PATIENT DAUGHTER CALLED, NO ANSWER AT THIS TIME.
--- NOTE | 2021-08-20 21:30 | NUR ---
PATIENT TO ER BED 15. PATIENT REFUSING TO GO TO ER BED 15 AT THIS TIME, PATIENT DOES NOT WANT TO BE TRIAGED. PATIENT REFUSED TO BE SEEN BY ER MD. PATIENT STATED SHE WANTS TO SIT IN THE WAITING ROOM.
--- NOTE | 2021-08-20 23:00 | NUR ---
PATIENT CALLED TO TRIAGE, DOES NOT WANT TO BE SEEN BY ER MD. PATIENT WANTS TO WAIT TO TALK TO WEATHERIZATION CREW LEADER IN THE MORNING. PATIENT WANTS TO WAIT IN THE WAITING ROOM.
--- NOTE | 2021-08-21 02:40 | NUR ---
Marah hancock in ED - 08/21/21 at 0350 by GALINA PT SITTING IN WAITING ROOM. NO ACUTE DISTRESS NOTED AT THIS TIME
== END 2021-08-21 00:30 | disposition left against medical advice (07) ==
LOC: ER 20:26
DX: Z53.21 Procedure and treatment not carried out due to patient leaving prior to being seen by health care provider (principal)

== ENCOUNTER 2021-08-28 12:24 | Inpatient (IN) | payer MEDICARE, OTHER ==
[~2021-08-28] VITALS: Ht 160 cm; Wt 58.1 kg
--- NOTE | 2021-08-28 12:39 | NUR ---
BIBRA 83 FROM DIALYSIS C/O HEAD ACHE AND NAUSEA AND VOMITING. VITAL SIGNS ARE STABLE. BREATHING IS EVEN AND UNLABORED, PT ON 2L NC. WARM BLANKET PROVIDED. DR CUEVAS AT BEDSIDE.
--- NOTE | 2021-08-28 12:41 | NUR ---
#20G IV ESTABLISH R WRIST. LABS COLLECTED AND SENT AT BEDSIDE.
[2021-08-28] MEDS ORDERED: ONDANSETRON HCL/PF - ER 4 MG/2 ML VIAL IV ONE (13:00)
[2021-08-28] MEDS ORDERED: ONDANSETRON HCL/PF 4 MG/2 ML VIAL ONE (13:07)
--- NOTE | 2021-08-28 13:21 | NUR ---
pt taken to ct
--- NOTE | 2021-08-28 13:30 | NUR ---
GOT AUTH TO ADMIT PER ADMITTING
[2021-08-28 13:31] LABS: BASOPHILS % (AUTO) 0.3 % (0.0-2.0); EOSINOPHILS % (AUTO) 0.8 % (0.0-6.0); LYMPHOCYTES # (AUTO) 0.3 K/uL (0.8-4.8); LYMPHOCYTES % (AUTO) 3.4 % (20.0-44.0); MEAN CORPUSCULAR HGB CONC 33 g/dl (31.0-36.0); MEAN CORPUSCULAR VOLUME 91 fL (82-100); MONOCYTES # (AUTO) 0.7 K/uL (0.1-1.30); MONOCYTES % (AUTO) 6.8 % (2.0-12.0); NEUTROPHILS # (AUTO) 8.7 K/uL (1.8-8.9); NEUTROPHILS % (AUTO) 88.7 % (43.0-81.0); PLATELET COUNT (AUTO) 304 K/uL (150-450); RED BLOOD CELL COUNT(AUTO) 2.04 MIL/uL (4.0-5.2); WHITE BLOOD COUNT (AUTO) 9.8 K/uL (4.3-11.0)
[2021-08-28] MEDS ORDERED: SEVE800T28 PO (13:36)
--- NOTE | 2021-08-28 13:36 | NUR ---
pt returned from ct
[2021-08-28 13:43] LABS: CALCIUM, SERUM 7.7 mg/dL (8.5-10.1); CARBON DIOXIDE 31 mmol/L (21-32); CHLORIDE 98 mmol/L (98-107); CREATININE 2.4 mg/dL (0.6-1.3); GLUCOSE 99 mg/dL (74-106); SODIUM SERUM 136 mmol/L (136-145); UREA NITROGEN, BLOOD 24 mg/dL (7-18)
[2021-08-28 13:45] LABS: HEMATOCRIT 19 % (33-45)
--- NOTE | 2021-08-28 13:45 | NUR ---
RAPID COVID COLLECTED AND SENT
[2021-08-28] MEDS ORDERED: PANTOPRAZOLE 40 MG VIAL IV ONE (14:00)
[2021-08-28] MEDS ORDERED: PANTOPRAZOLE 40 MG VIAL ONE (14:03)
--- NOTE | 2021-08-28 14:04 | NUR ---
CALLED [facility], PAGED RICHARDS FOR ADMISSION
--- NOTE | 2021-08-28 15:58 | NUR ---
BED 309 BED 1 GIVEN
--- NOTE | 2021-08-28 15:58 | NUR ---
BED 309-1 PER NURSING SUP. ADMITTING AWARE.
[2021-08-28] MEDS ORDERED: ONDANSETRON HCL/PF 4 MG/2 ML VIAL IVP PRN (16:00)
--- NOTE | 2021-08-28 16:07 | NUR ---
REPORT GIVEN TO MELANY FOR SKYLAR
[2021-08-28] MEDS ORDERED: Z GUARD REMEDY 4 OZ OINT TP PRN (16:30)
--- NOTE | 2021-08-28 16:45 | NUR ---
PICK AND SHOVEL MAN ADMITTING NOTES RECEIVED PATIENT FORM E.R ACCOMPANIED BY LUIGI Meier VIA [employer]. PATIENT IS AWAKE, ALERT AND ORIENTED X 3. ABLE TO MAKE NEEDS KNOWN. ON OXYGEN VIA NASAL CANNULA AT 2LPM SATURATING WELL AT 99%. IV ACCESS ON RIGHT HAND G#20, PATENT AND FLUSHES WELL. NOTED WITH AV FISTULA ON LEFT UPPER ARM. (+) BRUIT, (+) THRILL. VITAL SIGNS TAKEN AND RECORDED. NO COMPLAINTS OF PAIN AT THIS TIME. NO SKIN ISSUES IDENTIFIED. HOOKED ON TELE MONITOR READING SHOWING SR HR AT 70'S. SAFETY PRECAUTIONS IN PLACE: BED ON LOWEST LOCKED POSITION, SIDE RAILS UP X 2. CALL LIGHT WITHIN EASY REACH. WILL CONTINUE TO MONITOR ACCORDINGLY.
[2021-08-28 17:00] VITALS: BP 134/63
[2021-08-28] MEDS ORDERED: HEPARIN SODIUM, PORCINE 5000 UNITS/1 ML VIAL SQ SCH ×2 (17:00→21:00)
[2021-08-28 17:51] VITALS: BP 134/63
--- NOTE | 2021-08-28 17:51 | NUR ---
RN NOTES BLOOD TRANSFUSION OF 1 UNIT PRBC STARTED. BLOOD PRODUCT VERIFIED BY 2 RN. VITAL SIGNS TAKEN AND RECORDED. WILL CONTINUE TO MONITOR.
[2021-08-28 18:00] VITALS: BP 133/55
[2021-08-28 18:11] VITALS: BP 133/55
--- NOTE | 2021-08-28 18:11 | NUR ---
RN NOTES 15 MINUTES AFTER STARTING BLOOD TRANSFUSION OF 1 UNIT PRBC, NO UNTOWARD REACTION NOTED. WILL CONTINUE TO MONITOR.
[2021-08-28 18:26] VITALS: BP 136/61
--- NOTE | 2021-08-28 18:51 | NUR ---
MANAGER TRANSPORT CLOSING NOTES PATIENT IN BED, AWAKE, ALERT AND ORIENTED X 3. ABLE TO MAKE NEEDS KNOWN. ON OXYGEN VIA NASAL CANNULA AT 2LPM SATURATING WELL. IV ACCESS ON RIGHT HAND G#20, PATENT AND FLUSHES WELL. ONGOING 1 UNIT PRBC, NO S/SX OF INFILTRATION NOTED. WITH AV FISTULA ON LEFT UPPER ARM. (+) BRUIT, (+) THRILL. NO COMPLAINTS OF PAIN AT THIS TIME. ON TELE MONITOR READING SHOWING SR HR AT 70'S. SAFETY PRECAUTIONS IN PLACE: BED ON LOWEST LOCKED POSITION, SIDE RAILS UP X 2. CALL LIGHT WITHIN EASY REACH. ALL NEEDS ATTENDED AND MET.WILL ENDORSE TO ONCOMING SHIFT FOR SKYLAR.
--- NOTE | 2021-08-28 19:35 | NUR ---
RN NOTES Received patient awake on her bed, a/ox2-3 SR on tele monitor HR-82, blood transfusion ongoing, no reaction noted, no SOB, call light within reach, siderailsupx2, will continue to monitor
[2021-08-28 20:00] VITALS: BP 125/49
--- NOTE | 2021-08-28 21:00 | NUR ---
RN NOTES BLOOD TRANSFUSION FINISHED, V/S STABLE, NO REACTION NOTED
[2021-08-28] MEDS ORDERED: POTASSIUM CHLORIDE 20 MEQ TAB.PRT.SR PO ONE (23:00)
[2021-08-29] VITALS: BP 128/60
[2021-08-29] MEDS: ACETAMINOPHEN 325 MG TABLET PO PRN (01:47)
[2021-08-29 04:00] VITALS: BP 128/57
--- NOTE | 2021-08-29 06:23 | NUR ---
RN NOTES AWAKE, NPOT IN DISTRESS, DENIES PAIN, , MORNING CARE RENDERED, CALL LIGHT WITHIN REACH, [id number], PT. NEEDS ATTENDED
[2021-08-29 06:45] LABS: BASOPHILS % (AUTO) 0.5 % (0.0-2.0); EOSINOPHILS % (AUTO) 2.6 % (0.0-6.0); HEMATOCRIT 23 % (33-45); HEMOGLOBIN 7.4 g/dL (11.5-14.8); LYMPHOCYTES # (AUTO) 0.6 K/uL (0.8-4.8); LYMPHOCYTES % (AUTO) 8.2 % (20.0-44.0); MEAN CORPUSCULAR HGB CONC 33 g/dl (31.0-36.0); MEAN CORPUSCULAR VOLUME 92 fL (82-100); MONOCYTES # (AUTO) 0.9 K/uL (0.1-1.30); NEUTROPHILS # (AUTO) 5.2 K/uL (1.8-8.9); NEUTROPHILS % (AUTO) 75.7 % (43.0-81.0); PLATELET COUNT (AUTO) 283 K/uL (150-450); RED BLOOD CELL COUNT(AUTO) 2.47 MIL/uL (4.0-5.2); WHITE BLOOD COUNT (AUTO) 6.9 K/uL (4.3-11.0)
[2021-08-29 07:00] LABS: IRON, SERUM 205 ug/dl (50-175); TOTAL IRON BINDING CAPACITY 256 ug/dl (250-450)
--- NOTE | 2021-08-29 07:30 | NUR ---
CHANNEL MAN OPENING NOTES RECEIVED PATIENT RESTING BED AND A/O X2-3. ON O2 AT 2LPM VIA NASAL CANNULA TOLERATING WELL. NO SOB NOTED. NOT IN DISTRESS. WITH IV ACCESS AT RIGHT HAND G20 SALINE LOCKED, PATENT AND INTACT. ON TELE MONITOR CURRENTLY READING SINUS RHYTHM AT 80BPM. WITH LEFT UPPER ARM AV FISTULA WITH DRY AND INTACT DRESSING. SAFETY MEASURES IN PLACED. CALL LIGHT WITHIN REACH. BED ON LOWEST LOCKED POSITION, SIDE RAILS UP X2. WILL CONTINUE TO MONITOR.
[2021-08-29 07:38] LABS: CALCIUM, SERUM 8.1 mg/dL (8.5-10.1); CARBON DIOXIDE 29 mmol/L (21-32); CHLORIDE 96 mmol/L (98-107); CREATININE 4.2 mg/dL (0.6-1.3); GLUCOSE 83 mg/dL (74-106); MAGNESIUM 2.2 mg/dL (1.8-2.4); PHOSPHORUS 7.2 mg/dL (2.5-4.9); POTASSIUM 5.4 mmol/L (3.5-5.1); SODIUM SERUM 133 mmol/L (136-145); UREA NITROGEN, BLOOD 40 mg/dL (7-18)
[2021-08-29 08:09] VITALS: BP 139/62
[2021-08-29] MEDS: PANTOPRAZOLE 40 MG TABLET.DR PO SCH (08:37)
[2021-08-29 08:59] LABS: FERRITIN 159 ng/mL (8-388)
[2021-08-29] MEDS ORDERED: ALBUMIN 25% 12.5 GM/50 ML BOTTLE IV ONE (09:30)
[2021-08-29] MEDS ORDERED: ALBUMIN 25% 25 GM in PREMIX 1 EA IV ONE (10:00)
[2021-08-29] MEDS: AMOX/CLAVULANATE 250 MG TABLET PO SCH (11:51)
[2021-08-29] MEDS: SULFAMETH/TRIMETH 800/160 MG 1 UDTAB TABLET PO SCH (11:51)
[2021-08-29 11:58] VITALS: BP 124/60
[2021-08-29 16:05] VITALS: BP 148/51
[2021-08-29] MEDS: LORATADINE 10 MG TABLET PO SCH (16:38)
--- NOTE | 2021-08-29 18:39 | NUR ---
MOLDED GOODS SPOT PICKER CLOSING NOTES PATIENT RESTING BED AND A/O X2-3. ON O2 AT 2LPM VIA NASAL CANNULA TOLERATING WELL. NO SOB NOTED. NOT IN DISTRESS. WITH IV ACCESS AT RIGHT HAND G20 SALINE LOCKED, PATENT AND INTACT. WITH LEFT UPPER ARM AV FISTULA WITH DRY AND INTACT DRESSING. STATUS POST HEMODIALYSIS WITH AN OUTPUT OF 2L. DUE MEDS GIVEN. SAFETY MEASURES IN PLACED. CALL LIGHT WITHIN REACH. BED ON LOWEST LOCKED POSITION, SIDE RAILS UP X2. WILL ENDORSE TO NEXT SHIFT FOR SKYLAR.
[2021-08-29 20:00] VITALS: BP 134/61
--- NOTE | 2021-08-29 20:08 | NUR ---
PREKINDERGARTEN TEACHER OPENING NOTE PATIENT RECEIVED AWAKE IN BED. A/OX2-3. NO S/S OF DISTRESS, BREATHING SYMMETRICAL. TELE MONITOR REVEALS SR 91. RH #20 INTACT AND PATENT. SAFETY MEASURES IN PLACE: BED AT LOWEST POSITION, RAILS UP X2, CALL CHAND WITHIN REACH. WILL CONTINUE TO MONITOR.
[2021-08-30] VITALS: BP 114/50
[2021-08-30 04:00] VITALS: BP 140/67
--- NOTE | 2021-08-30 06:06 | NUR ---
JOCKEY AGENT CLOSING NOTE PATIENT AWAKE IN BED. A/OX3. NO S/S OF DISTRESS, BREATHING SYMMETRICAL. TELE MONITOR REVEALS SR85. RH #20 INTACT AND PATENT. SAFETY MEASURES IN PLACE: BED AT LOWEST POSITION, RAILS UP X2, CALL CHAND WITHIN REACH. WILL CONTINUE TO MONITOR. Addendum: 08/30/21 at 0607 by KAYE VORA RN WILL ENDORSE TO NEXT SHIFT FOR SKYLAR.
[2021-08-30 06:13] LABS: BASOPHILS # (AUTO) 0.1 K/uL (0.0-0.2); BASOPHILS % (AUTO) 0.6 % (0.0-2.0); EOSINOPHILS % (AUTO) 2.5 % (0.0-6.0); HEMATOCRIT 22 % (33-45); LYMPHOCYTES # (AUTO) 0.7 K/uL (0.8-4.8); LYMPHOCYTES % (AUTO) 7.1 % (20.0-44.0); MEAN CORPUSCULAR HGB CONC 32 g/dl (31.0-36.0); MEAN CORPUSCULAR VOLUME 95 fL (82-100); MONOCYTES % (AUTO) 11.2 % (2.0-12.0); NEUTROPHILS # (AUTO) 7.3 K/uL (1.8-8.9); NEUTROPHILS % (AUTO) 78.6 % (43.0-81.0); PLATELET COUNT (AUTO) 276 K/uL (150-450); RED BLOOD CELL COUNT(AUTO) 2.32 MIL/uL (4.0-5.2); WHITE BLOOD COUNT (AUTO) 9.3 K/uL (4.3-11.0)
[2021-08-30 06:54] LABS: CALCIUM, SERUM 9.3 mg/dL (8.5-10.1); CARBON DIOXIDE 27 mmol/L (21-32); CHLORIDE 102 mmol/L (98-107); GLUCOSE 83 mg/dL (74-106); MAGNESIUM 2.4 mg/dL (1.8-2.4); PHOSPHORUS 6.8 mg/dL (2.5-4.9); POTASSIUM 5.1 mmol/L (3.5-5.1); SODIUM SERUM 138 mmol/L (136-145); UREA NITROGEN, BLOOD 36 mg/dL (7-18)
--- NOTE | 2021-08-30 07:49 | NUR ---
UNIVERSITY INTERNSHIP OPENING NOTES Pt IS IN BED RESTING. Pt IS A-Ox2 AT THIS TIME. SHE IS ON 3L OF O@ VIA NC AND IS TOLERATING WELL. NO COMPLAINTS OF PAIN OR SIGNS OF DISTRESS NOTICED. SAFETY MEASURES ARE IN PLACE: BED IS LOCKED AND IN LOWEST POSITION. SIDE RAILS UPx2. BED SIDE TABLE AND CALL LIGHT ARE WITHIN REACH. WILL CONTINUE TO MONITOR THROUGHOUT THE SHIFT.
[2021-08-30 08:00] VITALS: BP 149/67
[2021-08-30] MEDS: PANTOPRAZOLE 40 MG TABLET.DR PO SCH (08:31)
[2021-08-30] MEDS: LORATADINE 10 MG TABLET PO SCH (08:32)
[2021-08-30] MEDS: AMOX/CLAVULANATE 250 MG TABLET PO SCH (08:38)
--- NOTE | 2021-08-30 09:25 | NUR ---
MICROSOFT WINDOWS ENGINEER NOTES Pt IS ASLEEP IN ROOM. EASILY AROUSABLE. HGB THIS AM WAS 7.0 AND HCT IS 22. IS AWARE. WILL CONTINUE TO MONITOR.
[2021-08-30] MEDS: SULFAMETH/TRIMETH 800/160 MG 1 UDTAB TABLET PO SCH (09:27)
[2021-08-30] MEDS: ACETAMINOPHEN 325 MG TABLET PO PRN (15:34)
[2021-08-30 16:00] VITALS: BP 124/59
[2021-08-30] MEDS: EPOETIN ALFA (10,000 UNIT) 10,000 UNIT/ML VIAL IV PRN (16:45)
--- NOTE | 2021-08-30 18:17 | NUR ---
MS RN CLOSING NOTES Pt IS IN BED AND IS A/Ox2-3. Pt IS ON 3L VIA NC AND TOLERATING WELL. Pt IS CONTINUOUSLY HAVING OUTBURST BECAUSE SHE WANTS TO GO HOME. NO COMPLAINTS OF PAIN AT THIS TIME. SAFETY MEASURES ARE IN PLACE: BED IS LOCKED AND IN LOWEST POSITION. SIDE RAILS UPx3. BED SIDE TABLE AND CALL LIGHT ARE WITHIN REACH. WILL ENDORSE TO ONCOMING SHIFT.
--- NOTE | 2021-08-30 19:16 | NUR ---
MS RN OPENING RECEIVED PATIENT IN BED WITH EYES CLOSED, EASY TO AROUSE. HOB ELEVATED. NO S/S OF APPARENT DISTRESS ON 3LPM OF O2 VIA NC. DENIES PAIN AT THIS TIME. NO FLUIDS RUNNING AT THIS TIME. SAFETY IN PLACE. WILL CONTINUE WITH PLAN OF CARE FOR PATIENT.
[2021-08-30 20:00] VITALS: BP 142/57
[2021-08-31] VITALS (8 sets, daily range): BP systolic 124–151; BP diastolic 52–70
[2021-08-31] MEDS: ACETAMINOPHEN 325 MG TABLET PO PRN (05:33)
[2021-08-31 06:48] LABS: BASOPHILS # (AUTO) 0.1 K/uL (0.0-0.2); BASOPHILS % (AUTO) 0.7 % (0.0-2.0); EOSINOPHILS % (AUTO) 1.5 % (0.0-6.0); HEMATOCRIT 22 % (33-45); LYMPHOCYTES # (AUTO) 0.5 K/uL (0.8-4.8); LYMPHOCYTES % (AUTO) 5.3 % (20.0-44.0); MEAN CORPUSCULAR HGB CONC 32 g/dl (31.0-36.0); MEAN CORPUSCULAR VOLUME 95 fL (82-100); MONOCYTES # (AUTO) 0.7 K/uL (0.1-1.30); MONOCYTES % (AUTO) 7.7 % (2.0-12.0); NEUTROPHILS # (AUTO) 7.8 K/uL (1.8-8.9); NEUTROPHILS % (AUTO) 84.8 % (43.0-81.0); PLATELET COUNT (AUTO) 266 K/uL (150-450); RED BLOOD CELL COUNT(AUTO) 2.28 MIL/uL (4.0-5.2); WHITE BLOOD COUNT (AUTO) 9.3 K/uL (4.3-11.0)
[2021-08-31 06:57] LABS: CALCIUM, SERUM 9.1 mg/dL (8.5-10.1); CARBON DIOXIDE 31 mmol/L (21-32); CHLORIDE 102 mmol/L (98-107); CREATININE 3.8 mg/dL (0.6-1.3); GLUCOSE 84 mg/dL (74-106); MAGNESIUM 2.2 mg/dL (1.8-2.4); PHOSPHORUS 5.6 mg/dL (2.5-4.9); POTASSIUM 4.7 mmol/L (3.5-5.1); SODIUM SERUM 141 mmol/L (136-145); UREA NITROGEN, BLOOD 32 mg/dL (7-18)
--- NOTE | 2021-08-31 07:06 | NUR ---
MS RN CLOSING NOTE PATIENT IN BED WITH EYES CLOSED, EASY TO AROUSE. NO S/S OF APPARENT DISTRESS ON 3LPM OF O2 VIA NC. PAIN MANAGED WITH TYLENOL. NO FLUIDS RUNNING AT THIS TIME. ALL NEEDS ATTENDED. WILL ENDORSED TO MORNING SHIFT RN FOR CONTINUITY OF CARE.
[2021-08-31 07:28] LABS: HEMOGLOBIN 6.9 g/dL (11.5-14.8)
--- NOTE | 2021-08-31 07:30 | NUR ---
MS RN OPENING NOTES RECEIVED PATIENT ON BED RESTING AND A/O X2-3. ON O2 AT 3LPM VIA NASAL CANNULA TOLERATING WELL. NO SOB NOTED. NOT IN DISTRESS. WITH NO COMPLAINTS OF PAIN OR DISCOMFORT AT THIS TIME. WITH IV ACCESS AT RIGHT HAND SALINE LOCKED, PATENT AND INTACT. SAFETY MEASURES IN PLACED. CALL LIGHT WITHIN REACH. BED ON LOWEST LOCKED POSITION, SIDE RAILS UP X2. WILL CONTINUE TO MONITOR.
[2021-08-31 08:06] LABS: IMMUNOGLOBULIN A, SERUM 302 mg/dL (64-422); IMMUNOGLOBULIN G, SERUM 1429 mg/dL (586-1602); IMMUNOGLOBULIN M, SERUM 109 mg/dL (26-217)
[2021-08-31] MEDS: PANTOPRAZOLE 40 MG TABLET.DR PO SCH (09:12)
[2021-08-31] MEDS: LORATADINE 10 MG TABLET PO SCH (09:12)
[2021-08-31] MEDS: AMOX/CLAVULANATE 250 MG TABLET PO SCH (09:12)
[2021-08-31] MEDS: SULFAMETH/TRIMETH 800/160 MG 1 UDTAB TABLET PO SCH (09:48)
--- NOTE | 2021-08-31 13:24 | NUR ---
RN NOTES PATIENT'S HGB IS 6.9 AND DOCTOR SUSIE ORDERED PATIENT FOR BLOOD TRANSFUSION 1U PRBC. BLOOD TRANSFUSION CONSENT SIGNED. STARTED BLOOD TRANSFUSION WITH RUTHIE RAYMOND. VITAL SIGNS CHECKED: BP-138/53, KY-82, RR-20, T-98.2 AND O2 SAT-99%. WILL MONITOR.
--- NOTE | 2021-08-31 16:57 | NUR ---
RN NOTES ENDED BLOOD TRANSFUSION AND CHECKED PATIENT'S VITAL SIGNS: BP-144/68, O2 SAT-99%, PA-78BPM, T-98.4 AND RR-19CPM.
--- NOTE | 2021-08-31 18:22 | NUR ---
MS RN CLOSING NOTES PATIENT ON BED RESTING AND A/O X2-3. ON O2 AT 2LPM VIA NASAL CANNULA TOLERATING WELL. NO SOB NOTED. NOT IN DISTRESS. WITH NO COMPLAINTS OF PAIN OR DISCOMFORT AT THIS TIME. WITH IV ACCESS AT RIGHT HAND SALINE LOCKED, PATENT AND INTACT. SAFETY MEASURES IN PLACED. CALL LIGHT WITHIN REACH. BED ON LOWEST LOCKED POSITION, SIDE RAILS UP X2. WILL ENDORSE TO NEXT SHIFT FOR SKYLAR.
--- NOTE | 2021-08-31 19:35 | NUR ---
MS RN NOTES RECEIVED ON BED A/O X2-3,BREATHING NON LABORED,O2 IN USED AT 3L/NC,O2 SAT 94%.WITH RIGHT FOREARM SALINE LOCK FOR MED,PAMELA FISTULA FOR HD ACCESS.S/P BLOOD TRANSFUSION OF 1 UNIT PRBC FOR HEMOGLOBIN 6.9.FOR GI CONSULT DUE TO ANEMIA,FALL PRECAUTION OBSERVED,BED ON LOWEST POSITION AND LOCKED,BED ALARM,CALL LIGHT IN REACH,NEEDS ANTICIPATED.
[2021-09-01 05:48] LABS: BASOPHILS # (AUTO) 0.1 K/uL (0.0-0.2); BASOPHILS % (AUTO) 0.9 % (0.0-2.0); EOSINOPHILS % (AUTO) 1.5 % (0.0-6.0); HEMATOCRIT 26 % (33-45); HEMOGLOBIN 8.5 g/dL (11.5-14.8); LYMPHOCYTES # (AUTO) 0.6 K/uL (0.8-4.8); LYMPHOCYTES % (AUTO) 7.1 % (20.0-44.0); MEAN CORPUSCULAR HGB CONC 33 g/dl (31.0-36.0); MEAN CORPUSCULAR VOLUME 92 fL (82-100); MONOCYTES # (AUTO) 0.7 K/uL (0.1-1.30); MONOCYTES % (AUTO) 7.8 % (2.0-12.0); NEUTROPHILS # (AUTO) 7.1 K/uL (1.8-8.9); NEUTROPHILS % (AUTO) 82.7 % (43.0-81.0); PLATELET COUNT (AUTO) 251 K/uL (150-450); RED BLOOD CELL COUNT(AUTO) 2.76 MIL/uL (4.0-5.2); WHITE BLOOD COUNT (AUTO) 8.6 K/uL (4.3-11.0)
[2021-09-01 06:13] LABS: CALCIUM, SERUM 9.2 mg/dL (8.5-10.1); CARBON DIOXIDE 27 mmol/L (21-32); CHLORIDE 99 mmol/L (98-107); CREATININE 5.6 mg/dL (0.6-1.3); GLUCOSE 85 mg/dL (74-106); MAGNESIUM 2.3 mg/dL (1.8-2.4); PHOSPHORUS 6.6 mg/dL (2.5-4.9); POTASSIUM 4.6 mmol/L (3.5-5.1); SODIUM SERUM 138 mmol/L (136-145); UREA NITROGEN, BLOOD 52 mg/dL (7-18)
--- NOTE | 2021-09-01 06:30 | NUR ---
MS RN NOTES SLEPT WITH INTERVALS,KEPT NPO FOR GI CONSULT IN RELATED TO ANEMIA,NO FALL,NO INJURY,ALL DUE MEDS ADMINISTERED,CALL LIGHT IN REACH,NEEDS ATTENDED.IN NO ACUTE DISTRESS.
[2021-09-01 08:06] LABS: *SPE A/G RATIO 0.9 (0.7-1.7); *SPE ALPHA-1-GLOBULIN 0.3 g/dL (0.0-0.4); *SPE ALPHA-2-GLOBULIN 0.7 g/dL (0.4-1.0); *SPE BETA GLOBULIN 0.9 g/dL (0.7-1.3); *SPE M-SPIKE Not Observed g/dL (Not Observed)
[2021-09-01 08:11] VITALS: BP 140/67
[2021-09-01] MEDS: LORATADINE 10 MG TABLET PO SCH (08:30)
[2021-09-01] MEDS: PANTOPRAZOLE 40 MG TABLET.DR PO SCH (08:30)
[2021-09-01] MEDS: AMOX/CLAVULANATE 250 MG TABLET PO SCH (08:45)
[2021-09-01] MEDS: SULFAMETH/TRIMETH 800/160 MG 1 UDTAB TABLET PO SCH (10:02)
[2021-09-01 16:02] VITALS: BP 138/72
[2021-09-01 16:13] LABS: OCCULT BLOOD STOOL POSITIVE (NEGATIVE)
[2021-09-01] MEDS: PANTOPRAZOLE 40 MG VIAL IV SCH (18:10)
--- NOTE | 2021-09-01 19:23 | NUR ---
MS RN OPENING NOTES RECEIVED ON BED A/O X2-3,BREATHING NON LABORED,O2 IN USED AT 3L/NC,O2 SAT 94%.WITH RIGHT FOREARM SALINE LOCK ,PAMELA FISTULA FOR HD ACCESS.FOR GI CONSULT DUE TO ANEMIA,FALL PRECAUTION OBSERVED,BED ON LOWEST POSITION AND LOCKED,BED ALARM,CALL LIGHT IN REACH,NEEDS ANTICIPATED WILL CONTINUE TO MONITOR.
--- NOTE | 2021-09-01 19:30 | NUR ---
MS RN CLOSING NOTES PATIENT ON BED A/O X2-3,BREATHING NON LABORED, STABLE ON ROOM AIR.WITH RIGHT FOREARM SALINE LOCK ,PAMELA FISTULA FOR HD ACCESS.FOR GI CONSULT DUE TO ANEMIA,FALL PRECAUTION OBSERVED,BED ON LOWEST POSITION AND LOCKED,BED ALARM,CALL LIGHT IN REACH,NEEDS MET. WILL ENDORSE TO THE NEXT SHIFT.
[2021-09-01 20:00] VITALS: BP 129/69
[2021-09-01] MEDS: ACETAMINOPHEN 325 MG TABLET PO PRN (21:42)
--- NOTE | 2021-09-01 21:45 | NUR ---
MS RN NOTES PRN TYLENOL GIVEN FOR A HEADACHE. TOLERATED WELL. WILL CONTINUE TO MONITOR.
--- NOTE | 2021-09-02 06:39 | NUR ---
MS RN CLOSING NOTES PT IN BED A/O X2-3,BREATHING NON LABORED,O2 IN USED AT 3L/NC,O2 SAT 94%.WITH RIGHT FOREARM SALINE LOCK ,PAMELA FISTULA FOR HD. PT TO HAVE HD TODAY.FALL PRECAUTION OBSERVED,BED ON LOWEST POSITION AND LOCKED,BED ALARM,CALL LIGHT IN REACH,NEEDS ANTICIPATED AND ATTENDED TO THROUGHOUT THE SHIFT WILL ENDORSE CARE TO DAY SHIFT NURSE.
[2021-09-02 06:54] LABS: BASOPHILS # (AUTO) 0.1 K/uL (0.0-0.2); BASOPHILS % (AUTO) 0.9 % (0.0-2.0); EOSINOPHILS % (AUTO) 2.2 % (0.0-6.0); HEMATOCRIT 25 % (33-45); HEMOGLOBIN 8.3 g/dL (11.5-14.8); LYMPHOCYTES # (AUTO) 0.5 K/uL (0.8-4.8); LYMPHOCYTES % (AUTO) 6.9 % (20.0-44.0); MEAN CORPUSCULAR HGB CONC 33 g/dl (31.0-36.0); MEAN CORPUSCULAR VOLUME 93 fL (82-100); MONOCYTES # (AUTO) 0.7 K/uL (0.1-1.30); NEUTROPHILS # (AUTO) 5.9 K/uL (1.8-8.9); PLATELET COUNT (AUTO) 226 K/uL (150-450); RED BLOOD CELL COUNT(AUTO) 2.68 MIL/uL (4.0-5.2); WHITE BLOOD COUNT (AUTO) 7.2 K/uL (4.3-11.0)
[2021-09-02 07:25] LABS: CALCIUM, SERUM 8.9 mg/dL (8.5-10.1); CARBON DIOXIDE 28 mmol/L (21-32); CHLORIDE 99 mmol/L (98-107); CREATININE 7.1 mg/dL (0.6-1.3); GLUCOSE 71 mg/dL (74-106); MAGNESIUM 2.4 mg/dL (1.8-2.4); PHOSPHORUS 7.9 mg/dL (2.5-4.9); POTASSIUM 5.6 mmol/L (3.5-5.1); SODIUM SERUM 137 mmol/L (136-145); UREA NITROGEN, BLOOD 62 mg/dL (7-18)
--- NOTE | 2021-09-02 07:30 | NUR ---
MS RN OPENING NOTES RECEIVED PATIENT ON BED AWAKE AND A/O X2-3. ON O2 AT 2LPM VIA NASAL CANNULA TOLERATING WELL. NO SOB NOTED. NOT IN DISTRESS. WITH NO COMPLAINTS OF PAIN OR DISCOMFORT AT THIS TIME. WITH IV ACCESS AT RIGHT FOREARM G20 SALINE LOCKED, PATENT AND INTACT. SAFETY MEASURES IN PLACED. CALL LIGHT WITHIN REACH. BED ON LOWEST LOCKED POSITION, SIDE RAILS UP X2. WILL CONTINUE TO MONITOR.
[2021-09-02 08:00] VITALS: BP 143/62
[2021-09-02] MEDS: PANTOPRAZOLE 40 MG VIAL IV SCH ×2 (08:53→17:30)
[2021-09-02] MEDS: LORATADINE 10 MG TABLET PO SCH (08:54)
[2021-09-02] MEDS: SULFAMETH/TRIMETH 800/160 MG 1 UDTAB TABLET PO SCH (08:57)
[2021-09-02] MEDS: AMOX/CLAVULANATE 250 MG TABLET PO SCH (08:57)
[2021-09-02 16:00] VITALS: BP 149/70
[2021-09-02] MEDS ORDERED: PEG 3350/NA SULF,BICARB,CL/KCL 4,000 ML BOTTLE PO ONE (16:00)
--- NOTE | 2021-09-02 18:56 | NUR ---
MS RN CLOSING NOTES PATIENT ON BED RESTING AND A/O X2-3. ON O2 AT 2LPM VIA NASAL CANNULA TOLERATING WELL. NO SOB NOTED. NOT IN DISTRESS. WITH NO COMPLAINTS OF PAIN OR DISCOMFORT AT THIS TIME. WITH IV ACCESS AT RIGHT FOREARM G20 SALINE LOCKED, PATENT AND INTACT. WITH 1 GALLON GOLYTELY AT BEDSIDE TO BE CONSUMED UNTIL 6AM TOMORROW FOR PREPARATION FOR EGD AND COLONOSCOPY. CONSENT OBTAINED. S/P HEMODIALYSIS WITH AN OUTPUT OF 2L. DUE MEDS GIVEN. SAFETY MEASURES IN PLACED. CALL LIGHT WITHIN REACH. BED ON LOWEST LOCKED POSITION, SIDE RAILS UP X2. WILL ENDORSE TO NEXT SHIFT FOR SKYLAR.
--- NOTE | 2021-09-02 19:20 | NUR ---
MS RN OPENING NOTES: RECEIVED PATIENT IN BED, AWAKE, A/O X4. NO S/S OF DISTRESS NOTED. CALL LIGHT WITHIN REACH. BED ALARM ON. BED IN LOWEST AND LOCKED POSITION. HOB ELEVATED. PATIENT STILL HAVE THE GOLYTELY AT THE BEDSIDE TO BE FINISHED, PER REPORTS FROM RUTHIE ESCOBAR PATIENT CAN FINISH THE GOLYTELY UNTIL 0600 TOMORROW, PATIENT INSTRUCTED, VERBALIZED UNDERSTANDING. ENCOURAGED TO DRINK IT. NPO POST MN EXCEPT MEDS PATIENT INSTRUCTED, VERBALIZED UNDERSTANDING. ON 02 AT 2L/MIN NASAL CANNULA. WITH LEFT ARM AV FISTULA WITH THE SIGN ON THE WALL.
[2021-09-02 20:00] VITALS: BP 147/71
[2021-09-03] MEDS ORDERED: SORBITOL SOLUTION 30 ML PO SCH (06:00)
[2021-09-03 07:20] LABS: BASOPHILS # (AUTO) 0.1 K/uL (0.0-0.2); BASOPHILS % (AUTO) 0.8 % (0.0-2.0); EOSINOPHILS % (AUTO) 1.7 % (0.0-6.0); HEMATOCRIT 26 % (33-45); HEMOGLOBIN 8.6 g/dL (11.5-14.8); LYMPHOCYTES # (AUTO) 0.6 K/uL (0.8-4.8); LYMPHOCYTES % (AUTO) 8.8 % (20.0-44.0); MEAN CORPUSCULAR HGB CONC 33 g/dl (31.0-36.0); MEAN CORPUSCULAR VOLUME 93 fL (82-100); MONOCYTES # (AUTO) 0.8 K/uL (0.1-1.30); NEUTROPHILS % (AUTO) 76.7 % (43.0-81.0); PLATELET COUNT (AUTO) 236 K/uL (150-450); RED BLOOD CELL COUNT(AUTO) 2.77 MIL/uL (4.0-5.2); WHITE BLOOD COUNT (AUTO) 6.5 K/uL (4.3-11.0)
--- NOTE | 2021-09-03 07:30 | NUR ---
MS RN OPENING NOTES RECEIVED PATIENT ON BED AWAKE AND A/O X2-3. ON O2 AT 2LPM VIA NASAL CANNULA TOLERATING WELL. NO SOB NOTED. NOT IN DISTRESS. WITH NO COMPLAINTS OF PAIN OR DISCOMFORT AT THIS TIME. WITH IV ACCESS AT RIGHT FOREARM G20 SALINE LOCKED, PATENT AND INTACT. PATIENT ON NPO FOR EGD AND COLONOSCOPY. SAFETY MEASURES IN PLACED. CALL LIGHT WITHIN REACH. BED ON LOWEST LOCKED POSITION, SIDE RAILS UP X2. WILL CONTINUE TO MONITOR.
[2021-09-03 07:34] LABS: CALCIUM, SERUM 9.7 mg/dL (8.5-10.1); CARBON DIOXIDE 25 mmol/L (21-32); CHLORIDE 100 mmol/L (98-107); CREATININE 4.4 mg/dL (0.6-1.3); GLUCOSE 64 mg/dL (74-106); MAGNESIUM 2.6 mg/dL (1.8-2.4); PHOSPHORUS 5.8 mg/dL (2.5-4.9); POTASSIUM 4.7 mmol/L (3.5-5.1); SODIUM SERUM 138 mmol/L (136-145); UREA NITROGEN, BLOOD 27 mg/dL (7-18)
[2021-09-03 08:00] VITALS: BP 145/85
[2021-09-03] MEDS: PANTOPRAZOLE 40 MG VIAL IV SCH ×2 (08:39→16:36)
[2021-09-03] MEDS: AMOX/CLAVULANATE 250 MG TABLET PO SCH ×2 (08:40→11:13)
[2021-09-03] MEDS: SULFAMETH/TRIMETH 800/160 MG 1 UDTAB TABLET PO SCH ×2 (08:41→11:14)
[2021-09-03] MEDS: LORATADINE 10 MG TABLET PO SCH ×2 (08:41→11:13)
--- NOTE | 2021-09-03 08:42 | NUR ---
WOUND CARE CONSULT: PT PRESENTS WITH LEFT ARM WOUND WHICH SHE STATES HAS BEEN THERE FOR 3 WEEKS. RECOMMEND SURGICAL CONSULT. RECOMMENDATIONS MADE FOR SKIN PROTECTION AND WOUND CARE. DISCUSSED WITH NURSING STAFF. IN AGREEMENT WITH PLAN OF CARE. Addendum: 09/03/21 at 0843 by ALIE MOONEY WNDNU Amended: Links added.
[2021-09-03] MEDS: BACITRACIN/POLYMYXIN B 15 GM TUBE TP SCH (11:14)
[2021-09-03] MEDS ORDERED: ROCURONIUM BROMIDE 50 MG/5 ML ONE (11:57)
[2021-09-03 13:05] VITALS: BP 151/63
--- NOTE | 2021-09-03 13:05 | NUR ---
MS RN NOTES PATIENT RETURNED FROM OR FOR EGD AND COLONOSCOPY. WITH STABLE VITAL SIGNS. BP-151/63, NC-87, RR-19, O2 SAT-94% AND T-98.4F. PATIENT IS AWAKE AND A/O X4. ABLE TO MAKE NEEDS KNOWN. WILL CONTINUE TO MONITOR.
[2021-09-03 16:00] VITALS: BP 146/72
--- NOTE | 2021-09-03 18:48 | NUR ---
MS RN CLOSING NOTES PATIENT ON BED AWAKE AND A/O X2-3. ON O2 AT 2LPM VIA NASAL CANNULA TOLERATING WELL. NO SOB NOTED. NOT IN DISTRESS. WITH NO COMPLAINTS OF PAIN OR DISCOMFORT AT THIS TIME. WITH IV ACCESS AT RIGHT FOREARM G20 SALINE LOCKED, PATENT AND INTACT. DUE MEDS GIVEN. SAFETY MEASURES IN PLACED. CALL LIGHT WITHIN REACH. BED ON LOWEST LOCKED POSITION, SIDE RAILS UP X2. WILL ENDORSE TO NEXT SHIFT FOR SKYLAR.
--- NOTE | 2021-09-03 19:15 | NUR ---
MS RN OPENING NOTES: RECEIVED PATIENT IN BED, AWAKE, A/O X4. NO S/S OF DISTRESS NOTED. NO COMPLAIN OF PAIN. CALL LIGHT WITHIN REACH. BED ALARM ON. BED IN LOWEST AND LOCKED POSITION. HOB ELEVATED. WITH O2 AT 2L/MIN NASAL CANNULA.
[2021-09-03 20:00] VITALS: BP 142/66
--- NOTE | 2021-09-03 21:54 | NUR ---
LEFT FOREARM DRESSING CAME OFF, DRESSING CHANGED.
[2021-09-04 08:00] VITALS: BP 154/75
[2021-09-04] MEDS: PANTOPRAZOLE 40 MG VIAL IV SCH ×2 (08:31→17:08)
[2021-09-04] MEDS: SULFAMETH/TRIMETH 800/160 MG 1 UDTAB TABLET PO SCH ×2 (08:32→10:21)
[2021-09-04] MEDS: AMOX/CLAVULANATE 250 MG TABLET PO SCH (08:32)
[2021-09-04] MEDS: LORATADINE 10 MG TABLET PO SCH (08:32)
[2021-09-04] MEDS: BACITRACIN/POLYMYXIN B 15 GM TUBE TP SCH (09:00)
[2021-09-04] MEDS ORDERED: OMEP20TA20 PO (09:35)
--- NOTE | 2021-09-04 10:30 | NUR ---
RN Notes: Received pt. asleep in bed, breathing is even and unlabored. Pt. ate breakfast and compliant on meds. Needs attended. Pt. is on dialysis at this time. No distress noted and will continue to monitor.
--- NOTE | 2021-09-04 12:30 | NUR ---
Pt. with a discharge order to home. Pt. without distress and on stable condition. Belongings ready and discharge papers ready.
--- NOTE | 2021-09-04 14:15 | NUR ---
Dialysis nurse report pt. had an output of 1000 cc after dialysis
[2021-09-04 14:28] LABS: BASOPHILS # (AUTO) 0.1 K/uL (0.0-0.2); BASOPHILS % (AUTO) 1.3 % (0.0-2.0); EOSINOPHILS % (AUTO) 1.6 % (0.0-6.0); HEMATOCRIT 28 % (33-45); LYMPHOCYTES # (AUTO) 0.4 K/uL (0.8-4.8); MEAN CORPUSCULAR HGB CONC 32 g/dl (31.0-36.0); MEAN CORPUSCULAR VOLUME 95 fL (82-100); MONOCYTES # (AUTO) 0.5 K/uL (0.1-1.30); MONOCYTES % (AUTO) 11.8 % (2.0-12.0); NEUTROPHILS # (AUTO) 3.4 K/uL (1.8-8.9); NEUTROPHILS % (AUTO) 77.3 % (43.0-81.0); PLATELET COUNT (AUTO) 246 K/uL (150-450); RED BLOOD CELL COUNT(AUTO) 2.98 MIL/uL (4.0-5.2); WHITE BLOOD COUNT (AUTO) 4.4 K/uL (4.3-11.0)
[2021-09-04] MEDS: EPOETIN ALFA (10,000 UNIT) 10,000 UNIT/ML VIAL IV PRN (16:08)
[2021-09-04 16:12] VITALS: BP 158/83
--- NOTE | 2021-09-04 17:35 | NUR ---
Pt. left the unit via ambulance and transported via a gurney with belongings. Left without distress and on stable condition. V/S taken: BP 148/82, MI 87, RR 18, temp. 98.7 and oxygen sat 93% room air. Instructed on meds to continue at home and verbalizes understanding and advised to follow up with psych and medical doctors and agreed.
== END 2021-09-04 17:40 | disposition home or self-care (01) | DRG 291 ==
LOC: ER 12:26 → TELE 16:20 → MED 08-30 08:18
PROVIDERS: ADMIT Nurse Practitioner Family; ATTEND Nurse Practitioner Acute Care
PROC: 30233N1 Transfusion of Nonautologous Red Blood Cells into Peripheral Vein, Percutaneous Approach (ICD-10-PCS; 2021-08-28)
PROC: 5A1D70Z Performance of Urinary Filtration, Intermittent, Less than 6 Hours Per Day (ICD-10-PCS; 2021-08-28)
PROC: 0DJ08ZZ Inspection of Upper Intestinal Tract, Via Natural or Artificial Opening Endoscopic (ICD-10-PCS; principal; 2021-09-03)
PROC: 0DJD8ZZ Inspection of Lower Intestinal Tract, Via Natural or Artificial Opening Endoscopic (ICD-10-PCS; 2021-09-03)
DX: I13.2 Hypertensive heart and chronic kidney disease with heart failure and with stage 5 chronic kidney disease, or end stage renal disease (principal); I50.33 Acute on chronic diastolic (congestive) heart failure; N18.6 End stage renal disease; L03.213 Periorbital cellulitis; K25.9 Gastric ulcer, unspecified as acute or chronic, without hemorrhage or perforation; Z99.2 Dependence on renal dialysis; J44.9 Chronic obstructive pulmonary disease, unspecified; E11.22 Type 2 diabetes mellitus with diabetic chronic kidney disease; D63.1 Anemia in chronic kidney disease; K64.8 Other hemorrhoids; Z20.822 Contact with and (suspected) exposure to COVID-19; G89.29 Other chronic pain; I27.20 Pulmonary hypertension, unspecified; Z86.73 Personal history of transient ischemic attack (TIA), and cerebral infarction without residual deficits; M89.9 Disorder of bone, unspecified; E21.3 Hyperparathyroidism, unspecified; Z98.890 Other specified postprocedural states; Z79.899 Other long term (current) drug therapy; F17.200 Nicotine dependence, unspecified, uncomplicated; E87.6 Hypokalemia; I25.2 Old myocardial infarction; E87.5 Hyperkalemia
CPT/HCPCS: 36415; 70450-TC; 71045-TC; 80048-TC; 82272-TC; 82728-TC; 82784; 83540-TC; 83735-TC; 83880; 84100-TC; 84155; 84165; 84443-TC; 84484-TC; 85025-TC; 85730-TC; 86334; 86704; 86705; 86803; 86850-TC; 87081-TC; 90935-TC; 93307-TC; A4216; A6403; C9113; C9803; G0378; J0885; J2405; J2704; J3490; J7030; J7050; P9016; P9047